=== PATIENT | male | born 1970 | race Caucasian/White ===

== ENCOUNTER 2018-01-10 15:35 | Emergency (ER) | payer OTHER ==
[2018-01-10] MEDS ORDERED: FAMOTIDINE 20 MG/2 ML VIAL IV ONE (17:03)
[2018-01-10] MEDS ORDERED: DIPHENHYDRAMINE 50 MG/ML VIAL ONE (17:03)
[2018-01-10] MEDS ORDERED: METHYLPREDNISOLONE 125 MG INJ ONE (17:03)
[2018-01-10 17:07] LABS: Absolute Lymphocytes (CBC) 1.9 K/uL (0.7-4.9); Absolute Monocytes 1.2 K/uL (0.1-1.3); Absolute Neutrophil 5.6 K/uL (1.8-8.0); Eosinophils % 3.9 % (0-4.4); Hematocrit 42.1 % (39.6-49.0); Lymphocytes % 20.8 % (15.3-44.8); MCH 32.4 pg (27.0-35.0); MCV 91.9 fL (80-100); MPV 12.2 fL (7.6-11.3); Monocytes % 13.4 % (3.3-12.3); RBC Red Blood Cell Count 4.58 M/uL (4.33-5.43)
--- NOTE | 2018-01-10 17:23 | RAD REPORT ---
EXAM DESCRIPTION: CT - Facial Bones W/ Mpr - 01/10/2018 5:14 pm CLINICAL HISTORY: Left-sided periorbital pain and swelling COMPARISON: None. TECHNIQUE: Axial 2 millimeter thick images of the facial bones were obtained with sagittal and coron al reconstruction imaging. All CT scans are performed using dose optimization technique as appropriate and may include automated exposure control or mA/KV adjustment according to patient size. FINDINGS: Intracranial portion the examination is grossly normal. Mastoid air cells are clear. Minim al mucosal thickening in the left maxillary sinus. No acute sinus finding. No globe abnormality. Optic nerve and extraocular muscles on the left have a normal appearance and ar e similar to the right. No postseptal abnormality seen. There is soft tissue swelling in the presepta l left periorbital soft tissues. No air or foreign body. No drainable fluid collection. No acute bone finding. No abnormal lymphadenopathy. IMPRESSION: Left periorbital soft tissue swelling and edema. No abscess or drainable fluid collectio n. Left globe and left orbital contents unremarkable. No postseptal abnormality.
[2018-01-10 17:54] LABS: Albumin 3.8 g/dL (3.4-5.0); Bilirubin Total 0.7 mg/dL (0.2-1.0); Protein, Total 7.5 g/dL (6.4-8.2)
[2018-01-10 17:55] LABS: Potassium 4.6 mmol/L (3.5-5.1)
--- NOTE | 2018-01-10 18:38 | ER ---
Nurse's Notes [facility] Name: Armando Grajeda Age: 47 yrs Sex: Male : 1970 Arrival Date: 01/10/2018 Time: 15:38 Bed 23 Private MD: Diagnosis: Urticaria;Allergy, unspecified;Periorbital swelling - allergic Presentation: 01/10 15:50 Presenting complaint: Patient states: Last Thursday he starting having allergy symptoms, aj1 and started taking allergy medications. Thursday morning he woke up and his eye was swollen, it was worse yesterday so he went to Urgent care and was diagnosed with cellulitis and given a Rx for clindamycin. He took it last night and this morning but the swelling in continuing to get worse. Transition of care: patient was not received from another setting of care. Onset of symptoms was January 03, 2018. Risk Assessment: Do you want to hurt yourself or someone else? Patient reports no desire to harm self or others. Initial Sepsis Screen: Does the patient meet any 2 criteria? No. Patient's initial sepsis screen is negative. Does the patient have a suspected source of infection? No. Patient's initial sepsis screen is negative. Care prior to arrival: None. 15:50 Method Of Arrival: Ambulatory aj1 15:50 Acuity: FEDER[place] 3 aj1 Triage Assessment: 15:55 General: Appears in no apparent distress. uncomfortable, Behavior is calm, cooperative, aj1 appropriate for age. Pain: Denies pain. EENT: Eyes Lid(s) redness and swelling noted to left eye. Neuro: Level of Consciousness is awake, alert, obeys commands. Cardiovascular: Patient's skin is warm and dry. Respiratory: Airway is patent Respiratory effort is even, unlabored, Respiratory pattern is regular, symmetrical. Historical: - Allergies: 15:55 No Known Allergies; aj1 - Home Meds: 15:55 clindamycin HCl 300 mg Oral cap 1 cap three times daily [Active]; Hydrochlorothiazide aj1 Oral [Active]; - PMHx: 15:55 Hypertension; aj1 - Immunization history:: Flu vaccine status is unknown. - Social history:: Smoking status: Patient/guardian denies using tobacco. - Ebola Screening: : No symptoms or risks identified at this time. Screenin:00 Abuse screen: Denies threats or abuse. Denies injuries from another. Nutritional kr2 screening: No deficits noted. Tuberculosis screening: No symptoms or risk factors identified. Fall Risk None identified. Assessment: 16:00 General: Appears in no apparent distress. comfortable, well groomed, well developed, kr2 well nourished, Behavior is calm, cooperative, appropriate for age. Pain: Denies pain. Neuro: Level of Consciousness is awake, alert, obeys commands, Oriented to person, place, time, situation, Appropriate for age. Cardiovascular: Capillary refill < 3 seconds in bilateral fingers Patient's skin is warm and dry. Respiratory: Airway is patent Respiratory effort is even, unlabored, Respiratory pattern is regular, symmetrical. GI: Abdomen is flat, non-distended. EENT: Lid(s) swelling. Nares are clear bilaterally Oral mucosa is moist. Derm: Skin is intact, is healthy with good turgor, Skin is pink, warm \T\ dry. Rash noted that is red, on wrists. Musculoskeletal: Swelling present in right eye and left eye. 17:00 Reassessment: Patient appears in no apparent distress at this time. Patient and/or kr2 family updated on plan of care and expected duration. Pain level reassessed. Patient is alert, oriented x 3, equal unlabored respirations, skin warm/dry/pink. Patient denies pain at this time. Patient states feeling better. 18:00 Reassessment: Patient appears in no apparent distress at this time. Patient and/or kr2 family updated on plan of care and expected duration. Pain level reassessed. Patient is alert, oriented x 3, equal unlabored respirations, skin warm/dry/pink. Patient states feeling better. Patient states symptoms have improved. 18:50 Reassessment: Patient appears in no apparent distress at this time. Patient and/or kr2 family updated on plan of care and expected duration. Pain level reassessed. Patient is alert, oriented x 3, equal unlabored respirations, skin warm/dry/pink. Patient denies pain at this time. Patient states feeling better. Patient states symptoms have improved. Vital Signs: 15:55 BP 129 / 83; Pulse 74; Resp 18; Temp 98.7(TE); Pulse Ox 96% on R/A; Weight 97.52 kg aj1 (R); Height 5 ft. 9 in. (175.26 cm) (R); Pain 0/10; 18:25 BP 129 / 83; Pulse 68; Resp 17; Pulse Ox 97% on R/A; kr2 15:55 Body Mass Index 31.75 (97.52 kg, 175.26 cm) aj1 ED Course: 15:38 Patient arrived in ED. as 15:54 Triage completed. aj1 15:55 Arm band placed on Patient placed in an exam room. aj1 16:00 Patient has correct armband on for positive identification. Bed in low position. Call kr2 light in reach. Side rails up X 1. Pulse ox on. NIBP on. Door closed. Warm blanket given. 16:01 Adan Hdz, LAURYN is PHCP. pm1 16:01 Adam Mckinnon MD is Attending Physician. pm1 16:40 Missed attempt(s): 20 gauge in left antecubital area. Bleeding controlled, band aid kr2 applied, catheter tip intact. 16:45 Inserted saline lock: 20 gauge in right antecubital area, using aseptic technique. kr2 ,using aseptic technique. by GELA Anderson Blood collected. 16:57 Felicia Weinstein, GELA is Primary Nurse. kr2 17:13 CT completed. Patient tolerated procedure well. Patient moved back from CT. kw1 17:14 CT Facial Bones W/O Con In Process Unspecified. EDMS 18:50 No provider procedures requiring assistance completed. IV discontinued, intact, kr2 bleeding controlled, No redness/swelling at site. Pressure dressing applied. Administered Medications: 17:04 Drug: Benadryl 25 mg Route: IVP; Site: right antecubital; kr2 18:26 Follow up: Response: No adverse reaction; Marked relief of symptoms kr2 17:04 Drug: Pepcid 20 mg Route: IVP; Site: right antecubital; kr2 18:26 Follow up: Response: No adverse reaction; Marked relief of symptoms kr2 17:04 Drug: SOLU-Medrol 125 mg Route: IVP; Site: right antecubital; kr2 18:26 Follow up: Response: No adverse reaction; Marked relief of symptoms kr2 Outcome: 18:38 Discharge ordered by . pm1 18:50 Discharged to home ambulatory, with family. kr2 18:50 Condition: improved 18:50 Discharge instructions given to patient, family, Instructed on discharge instructions, follow up and referral plans. medication usage, Demonstrated understanding of instructions, follow-up care, medications, Prescriptions given X 3. 18:51 Patient left the ED. kr2 Signatures: Dispatcher [employer] EDMS Cathy Reyes, RN RN lily1 Brigitte Esparza Patrick, LAURYN SENIOR JAVA J2EE DEVELOPER pm1 Felicia Weinstein RN RN kr2 Noreen Gutierrez kw1
--- NOTE | 2018-01-10 18:38 | EDPHYS ---
Physician Documentation [facility] Name: Armando Grajeda Age: 47 yrs Sex: Male : 1970 Arrival Date: 01/10/2018 Time: 15:38 Bed 23 Private MD: ED Physician Adam Mckinnon HPI: 01/10 17:00 This 47 yrs old Male presents to ER via Ambulatory with complaints of Eye pm1 Swelling, Skin Problem - Neck/Forehead. 17:00 The patient is experiencing swelling, to the left eye, caused by an unknown mechanism. pm1 Onset: The symptoms/episode began/occurred 1 week(s) ago. Duration: the symptoms are continuous. Aggravated by nothing. Alleviated by nothing. Associated signs and symptoms: Pertinent negatives: ear ache, fever. Patient does not utilize any form of vision correction. Severity of symptoms: Pain is currently a 0 / 10. The patient has not experienced similar symptoms in the past. The patient has been recently seen at an urgent care, yesterday, for similar complaints, was given a prescription for antibiotics, clindamycin. Patient with allergy symptoms and swelling to left eye that started about 1 week ago. Patient went to urgent care yesterday because the swelling got worse and was prescribed clindamycin for an impression of periorbital cellulitis. Patient reports no improvement in symptoms with the antibiotics. Patient without pain to left eye. Eye movement does not cause any pain. Patient has noticed some urticarial rash to right cheek, forehead, and neck. Historical: - Allergies: 15:55 No Known Allergies; aj1 - Home Meds: 15:55 clindamycin HCl 300 mg Oral cap 1 cap three times daily [Active]; Hydrochlorothiazide aj1 Oral [Active]; - PMHx: 15:55 Hypertension; aj1 - Immunization history:: Flu vaccine status is unknown. - Social history:: Smoking status: Patient/guardian denies using tobacco. - Ebola Screening: : No symptoms or risks identified at this time. ROS: 17:00 Constitutional: Negative for fever, chills, and weight loss, ENT: Negative for injury, pm1 pain, and discharge, Neck: Negative for injury, pain, and swelling. 17:00 Cardiovascular: Negative for chest pain, palpitations, and edema, Respiratory: Negative for shortness of breath, cough, wheezing, and pleuritic chest pain, Abdomen/GI: Negative for abdominal pain, nausea, vomiting, diarrhea, and constipation, Back: Negative for injury and pain, : Negative for injury, bleeding, discharge, and swelling, MS/Extremity: Negative for injury and deformity. 17:00 Neuro: Negative for headache, weakness, numbness, tingling, and seizure. 17:00 Eyes: Positive for swelling, of the left upper eyelid and left lower eyelid, Negative for blurry vision, foreign body sensation, pain, photophobia, vision loss, visual disturbance. 17:00 Skin: Positive for rash, of the forehead and right cheek. Exam: 17:00 Constitutional: This is a well developed, well nourished patient who is awake, alert, pm1 and in no acute distress. Head/Face: Normocephalic, atraumatic. ENT: Nares patent. No nasal discharge, no septal abnormalities noted. Tympanic membranes are normal and external auditory canals are clear. Oropharynx with no redness, swelling, or masses, exudates, or evidence of obstruction, uvula midline. Mucous membranes moist. 17:00 Neck: Trachea midline, no thyromegaly or masses palpated, and no cervical lymphadenopathy. Supple, full range of motion without nuchal rigidity, or vertebral point tenderness. No Meningismus. Chest/axilla: Normal chest wall appearance and motion. Nontender with no deformity. No lesions are appreciated. Cardiovascular: Regular rate and rhythm with a normal S1 and S2. No gallops, murmurs, or rubs. Normal PMI, no JVD. No pulse deficits. Respiratory: Lungs have equal breath sounds bilaterally, clear to auscultation and percussion. No rales, rhonchi or wheezes noted. No increased work of breathing, no retractions or nasal flaring. Abdomen/GI: Soft, non-tender, with normal bowel sounds. No distension or tympany. No guarding or rebound. No evidence of tenderness throughout. Back: No spinal tenderness. No costovertebral tenderness. Full range of motion. MS/ Extremity: Pulses equal, no cyanosis. Neurovascular intact. Full, normal range of motion. Neuro: Awake and alert, GCS 15, oriented to person, place, time, and situation. Cranial nerves II-XII grossly intact. Motor strength 5/5 in all extremities. Sensory grossly intact. Cerebellar exam normal. Normal gait. 17:00 Eyes: Periorbital structures: swelling, that is mild, on the left supraorbital ridge, left upper eyelid and left lower eyelid, Pupils: no acute changes, equal, round, and reactive to light and accomodation, Extraocular movements: Not painful with both eyes, Conjunctiva: normal, no chemosis, no exudate, no injection, no subconjunctival hemorrhage no abnormal tearing. 17:00 Skin: Appearance: normal except for affected area, consistent with urticaria, on the right cheek and forehead. 17:00 Neuro: Orientation: is normal, Motor: moves all fours. Vital Signs: 15:55 BP 129 / 83; Pulse 74; Resp 18; Temp 98.7(TE); Pulse Ox 96% on R/A; Weight 97.52 kg aj1 (R); Height 5 ft. 9 in. (175.26 cm) (R); Pain 0/10; 18:25 BP 129 / 83; Pulse 68; Resp 17; Pulse Ox 97% on R/A; kr2 15:55 Body Mass Index 31.75 (97.52 kg, 175.26 cm) aj1 MDM: 16:03 Patient medically screened. pm1 18:32 Data reviewed: vital signs. Data interpreted: Pulse oximetry: on room air is 97 %. pm1 Interpretation: normal. Counseling: I had a detailed discussion with the patient and/or guardian regarding: the historical points, exam findings, and any diagnostic results supporting the discharge/admit diagnosis, lab results, radiology results, the need for outpatient follow up, to return to the emergency department if symptoms worsen or persist or if there are any questions or concerns that arise at home. 18:32 Medication response: Solu-Medrol, pepcid, Benadryl. Patient with marked improvement pm1 with medications given. 18:32 ED course: Patient with good response to medications for treating allergic reaction. pm1 Impression is that the patient's symptoms are allergic versus infective. 01/10 16:17 Order name: CBC with Diff; Complete Time: 17:26 pm1 01/10 16:17 Order name: CMP; Complete Time: 17:58 pm1 01/10 16:17 Order name: CT Facial Bones W/O Con; Complete Time: 17:26 pm1 01/10 16:17 Order name: IV Saline Lock; Complete Time: 17:04 pm1 01/10 17:13 Order name: Labs - recollect needed; Complete Time: 17:42 eb Administered Medications: 17:04 Drug: Benadryl 25 mg Route: IVP; Site: right antecubital; kr2 18:26 Follow up: Response: No adverse reaction; Marked relief of symptoms kr2 17:04 Drug: Pepcid 20 mg Route: IVP; Site: right antecubital; kr2 18:26 Follow up: Response: No adverse reaction; Marked relief of symptoms kr2 17:04 Drug: SOLU-Medrol 125 mg Route: IVP; Site: right antecubital; kr2 18:26 Follow up: Response: No adverse reaction; Marked relief of symptoms kr2 Disposition: 01/10/18 18:38 Discharged to Home. Impression: Periorbital swelling - allergic, Urticaria, Allergy, unspecified. - Condition is Stable. - Discharge Instructions: Hives. - Prescriptions for Benadryl 25 mg Oral Capsule - take 1 capsule by ORAL route every 6 hours As needed; 30 tablet. Pepcid 20 mg Oral Tablet - take 1 tablet by ORAL route every 12 hours for 5 days; 10 tablet. Prednisone 20 mg Oral Tablet - take 3 tablet by ORAL route once daily for 5 days; 15 tablet. - Medication Reconciliation Form, Thank You Letter, Antibiotic Education, Prescription Opioid Use form. - Follow up: Emergency Department; When: As needed; Reason: Worsening of condition. Follow up: Private Physician; When: 2 - 3 days; Reason: Recheck today's complaints, Continuance of care, Re-evaluation by your physician. - Problem is new. - Symptoms have improved. Addendum: 01/19/2018 08:25 Co-signature as Attending Physician, Adam Mckinnon MD. r n Signatures: Dispatcher [employer] EDMS Cathy Reyes RN RN aj1 Adam Mckinnon MD MD rn Marinas, Patrick, LAURYN INSULATION BOARD BACK TENDER pm1 Felicia Weinstein RN RN kr2 Maren Pedraza Corrections: (The following items were deleted from the chart) 01/10 18:51 18:38 01/10/2018 18:38 Discharged to Home. Impression: Periorbital swelling - kr2 allergicUrticaria; Allergy, unspecified. Condition is Stable. Forms are Medication Reconciliation Form, Thank You Letter, Antibiotic Education, Prescription Opioid Use. Follow up: Emergency Department; When: As needed; Reason: Worsening of condition. Follow up: Private Physician; When: 2 - 3 days; Reason: Recheck today's complaints, Continuance of care, Re-evaluation by your physician. Problem is new. Symptoms have improved. pm1
[2018-01-10 19:02] VITALS: BP 129/83; TEMP 98.7
[2018-01-10 19:03] VITALS: O2SAT 97
== END 2018-01-10 18:51 | disposition home or self-care (01) ==
LOC: ER 15:35
DX: L50.9 Urticaria, unspecified (principal); I10 Essential (primary) hypertension; Z91.09 Other allergy status, other than to drugs and biological substances
CPT/HCPCS: 36415; 70486; 76377; 80053; 85025; 96374; 96375; 99284; J2930; Q9967

== ENCOUNTER 2018-10-06 14:41 | Emergency (ER) | payer OTHER ==
[2018-10-06] MEDS ORDERED: DIPHENHYDRAMINE 25 MG TAB/CAP ONE (16:10)
[2018-10-06] MEDS ORDERED: METHYLPREDNISOLONE 125 MG INJ ONE (16:10)
[2018-10-06] MEDS ORDERED: FAMOTIDINE 20 MG TAB ONE (16:10)
--- NOTE | 2018-10-06 16:29 | EDPHYS ---
Physician Documentation [facility] Name: Armando Grajeda Age: 48 yrs Sex: Male : 1970 Arrival Date: 10/06/2018 Time: 14:44 Bed 11 Private MD: Edmond Duggan ED Physician Scottie Santana HPI: 10/06 16:08 This 48 yrs old Male presents to ER via Ambulatory with complaints of Eye kb Swelling, Allergy Symptoms. 16:08 The patient is experiencing matting or discharge, redness, The patient sustained None. kb to the left eye, caused by allergies. Onset: The symptoms/episode began/occurred yesterday. Duration: the symptoms are continuous. Aggravated by nothing. Alleviated by nothing. Associated signs and symptoms: Pertinent positives: None. Patient does not utilize any form of vision correction. Severity of symptoms: At their worst the symptoms were moderate in the emergency department the symptoms are unchanged. The patient has experienced similar episodes in the past. The patient has not recently seen a physician. Pt reports he has bad allergies and they affect his eye every once in a while. c/o redness, swelling to eyelids and drainage to left eye. States he has had these exact symptoms in the past several times, was seen here the last time he had symptoms and the treatment they gave took care of it. States he has tried multiple things at home without relief. . Historical: - Allergies: 15:40 No Known Allergies; ph - PMHx: 15:40 Hypertension; ph - PSHx: 15:40 Gastric Bypass; leg sx; Appendectomy; ph - Immunization history:: Adult Immunizations unknown. - Social history:: Smoking status: Patient/guardian denies using tobacco. - Ebola Screening: : No symptoms or risks identified at this time. ROS: 16:07 Constitutional: Negative for fever, chills, and weight loss, Neck: Negative for injury, kb pain, and swelling, Cardiovascular: Negative for chest pain, palpitations, and edema, Respiratory: Negative for shortness of breath, cough, wheezing, and pleuritic chest pain, Abdomen/GI: Negative for abdominal pain, nausea, vomiting, diarrhea, and constipation, MS/Extremity: Negative for injury and deformity, Skin: Negative for injury, rash, and discoloration, Neuro: Negative for headache, weakness, numbness, tingling, and seizure. 16:07 Eyes: Positive for discharge, redness, swelling. Exam: 16:05 Constitutional: This is a well developed, well nourished patient who is awake, alert, kb and in no acute distress. Head/Face: Normocephalic, atraumatic. ENT: Nares patent. No nasal discharge, no septal abnormalities noted. Tympanic membranes are normal and external auditory canals are clear. Oropharynx with no redness, swelling, or masses, exudates, or evidence of obstruction, uvula midline. Mucous membranes moist. Chest/axilla: Normal chest wall appearance and motion. Nontender with no deformity. No lesions are appreciated. Cardiovascular: Regular rate and rhythm with a normal S1 and S2. No gallops, murmurs, or rubs. Normal PMI, no JVD. No pulse deficits. Respiratory: Lungs have equal breath sounds bilaterally, clear to auscultation and percussion. No rales, rhonchi or wheezes noted. No increased work of breathing, no retractions or nasal flaring. Abdomen/GI: Soft, non-tender, with normal bowel sounds. No distension or tympany. No guarding or rebound. No evidence of tenderness throughout. Skin: Warm, dry with normal turgor. Normal color with no rashes, no lesions, and no evidence of cellulitis. MS/ Extremity: Pulses equal, no cyanosis. Neurovascular intact. Full, normal range of motion. Neuro: Awake and alert, GCS 15, oriented to person, place, time, and situation. Cranial nerves II-XII grossly intact. Motor strength 5/5 in all extremities. Sensory grossly intact. Cerebellar exam normal. Normal gait. 16:05 Eyes: Periorbital structures: swelling, that is moderate, on the left upper eyelid and left lower eyelid, Pupils: equal, round, and reactive to light and accomodation, Extraocular movements: intact throughout, Conjunctiva: injected, in the left eye. 16:28 Visual Acuity: I have reviewed the nursing documentation. Vital Signs: 15:40 BP 131 / 89; Pulse 97; Resp 18; Temp 98.0; Pulse Ox 97% on R/A; Weight 96.62 kg; Height ph 5 ft. 9 in. (175.26 cm); 15:40 Body Mass Index 31.45 (96.62 kg, 175.26 cm) ph Visual Acuity: 16:28 Left Eye Visual acuity 20/25, Normal, Reactive To Accomodation; Right Eye Visual acuity ss 20/50, Normal, Reactive To Accomodation; Both Eyes Visual acuity 20/20; Without Lenses; MDM: 15:47 Patient medically screened. kb 16:05 Data reviewed: vital signs, nurses notes. Data interpreted: Pulse oximetry: on room air kb is 97 %. Interpretation: normal. Counseling: I had a detailed discussion with the patient and/or guardian regarding: the historical points, exam findings, and any diagnostic results supporting the discharge/admit diagnosis, the need for outpatient follow up, a family practitioner, to return to the emergency department if symptoms worsen or persist or if there are any questions or concerns that arise at home. 10/06 16:06 Order name: Visual Acuity; Complete Time: 16:28 kb Administered Medications: 16:01 Drug: Pepcid 20 mg Route: PO; ss 16:29 Follow up: Response: No adverse reaction ss 16:01 Drug: Benadryl 25 mg Route: PO; ss 16:29 Follow up: Response: No adverse reaction ss 16:01 Drug: SOLU-Medrol 125 mg Route: IM; Site: right gluteus; ss 16:28 Follow up: Response: No adverse reaction ss Disposition: 10/07 06:51 Co-signature as Attending Physician, Scottie Santana MD I agree with the assessment and kdr plan of care. Disposition: 10/06/18 16:28 Discharged to Home. Impression: Conjunctivitis - allergic. - Condition is Stable. - Discharge Instructions: Allergic Conjunctivitis, [id number]. - Prescriptions for Pepcid 20 mg Oral Tablet - take 1 tablet by ORAL route every 12 hours for 5 days; 10 tablet. Prednisone 20 mg Oral Tablet - take 1 tablet by ORAL route once daily for 5 days; 5 tablet. - Medication Reconciliation Form, Thank You Letter, Antibiotic Education, Prescription Opioid Use form. - Follow up: Private Physician; When: 2 - 3 days; Reason: Recheck today's complaints, Continuance of care, Re-evaluation by your physician. Follow up: Emergency Department; When: As needed; Reason: Worsening of condition. Signatures: Angeles Omalley, APPLIANCE COUNSELOR-C TIM-Scottie Michele MD MD kdr Jeniffer Mcginnis RN RN ss Rea Dupree RN RN ph Corrections: (The following items were deleted from the chart) 10/06 16:34 16:28 10/06/2018 16:28 Discharged to Home. Impression: Conjunctivitis - allergic. ss Condition is Stable. Discharge Instructions: Allergic Conjunctivitis, [id number]. Prescriptions for Pepcid 20 mg Oral Tablet - take 1 tablet by ORAL route every 12 hours for 5 days; 10 tablet, Prednisone 20 mg Oral Tablet - take 1 tablet by ORAL route once daily for 5 days; 5 tablet. and Forms are Medication Reconciliation Form, Thank You Letter, Antibiotic Education, Prescription Opioid Use. Follow up: Private Physician; When: 2 - 3 days; Reason: Recheck today's complaints, Continuance of care, Re-evaluation by your physician. Follow up: Emergency Department; When: As needed; Reason: Worsening of condition. kb
--- NOTE | 2018-10-06 16:29 | ER ---
Nurse's Notes [facility] Name: Armando Grajeda Age: 48 yrs Sex: Male : 1970 Arrival Date: 10/06/2018 Time: 14:44 Bed 11 Private MD: Edmond Duggan Diagnosis: Conjunctivitis-allergic Presentation: 10/06 15:37 Presenting complaint: Patient states: L eye redness and swelling since yesterday, ph states, " I have bad seasonal allergies and this happens sometimes." Redness noted to L sclera, swelling to lid, drainage also noted to inner canthus. Transition of care: patient was not received from another setting of care. Onset: The symptoms/episode began/occurred yesterday. Anaphylaxis evaluation, no signs or symptoms of anaphylaxis were noted. Onset of symptoms was October 06, 2018. Risk Assessment: Do you want to hurt yourself or someone else? Patient reports no desire to harm self or others. Initial Sepsis Screen: Does the patient meet any 2 criteria? No. Patient's initial sepsis screen is negative. Does the patient have a suspected source of infection? No. Patient's initial sepsis screen is negative. Care prior to arrival: None. 15:37 Method Of Arrival: Ambulatory ph 15:37 Acuity: FEDERICO 4 ph Historical: - Allergies: 15:40 No Known Allergies; ph - PMHx: 15:40 Hypertension; ph - PSHx: 15:40 Gastric Bypass; leg sx; Appendectomy; ph - Immunization history:: Adult Immunizations unknown. - Social history:: Smoking status: Patient/guardian denies using tobacco. - Ebola Screening: : No symptoms or risks identified at this time. Screenin:48 Abuse screen: Denies threats or abuse. Denies injuries from another. Nutritional ss screening: No deficits noted. Tuberculosis screening: Never had TB. Fall Risk None identified. Assessment: 15:43 General: Appears in no apparent distress. comfortable, well groomed, Behavior is calm, ph cooperative, appropriate for age, Denies fever, feeling ill. Pain: Complains of pain in left eye. Neuro: Level of Consciousness is awake, alert, obeys commands, Oriented to person, place, time, situation. Cardiovascular: Capillary refill < 3 seconds in bilateral fingers Patient's skin is warm and dry. Respiratory: Airway is patent Respiratory effort is even, unlabored, Respiratory pattern is regular, symmetrical, Breath sounds are clear bilaterally. Denies cough, shortness of breath. EENT: Sclera/Cornea are reddened in left eye. Derm: Skin is intact, is healthy with good turgor, Skin is pink, warm \\T\\ dry. 16:03 Reassessment: Patient appears in no apparent distress at this time. Patient and/or ss family updated on plan of care and expected duration. Pain level reassessed. lights dimmed for comfort, patient is thankful for care received thus far. 16:29 Reassessment: Patient appears in no apparent distress at this time. Patient and/or ss family updated on plan of care and expected duration. Pain level reassessed. Patient is alert, oriented x 3, equal unlabored respirations, skin warm/dry/pink. Vital Signs: 15:40 BP 131 / 89; Pulse 97; Resp 18; Temp 98.0; Pulse Ox 97% on R/A; Weight 96.62 kg; Height ph 5 ft. 9 in. (175.26 cm); 15:40 Body Mass Index 31.45 (96.62 kg, 175.26 cm) ph Visual Acuity: 16:28 Left Eye Visual acuity 20/25, Normal, Reactive To Accomodation; Right Eye Visual acuity ss 20/50, Normal, Reactive To Accomodation; Both Eyes Visual acuity 20/20; Without Lenses; ED Course: 14:44 Patient arrived in ED. as 14:44 Edmond Duggan MD is Private Physician. as 15:39 Triage completed. ph 15:40 Arm band placed on. ph 15:43 Rea Dupree RN is Primary Nurse. ph 15:46 Angeles Omalley F[facility]-C [facility]. kb 15:46 Scottie Santana MD is Attending Physician. kb 15:48 Patient has correct armband on for positive identification. Bed in low position. Call ss light in reach. 15:48 Patient maintains SpO2 saturation greater than 95% on room air. ss 16:29 No provider procedures requiring assistance completed. Patient did not have IV access ss during this emergency room visit. Administered Medications: 16:01 Drug: Pepcid 20 mg Route: PO; ss 16:29 Follow up: Response: No adverse reaction ss 16:01 Drug: Benadryl 25 mg Route: PO; ss 16:29 Follow up: Response: No adverse reaction ss 16:01 Drug: SOLU-Medrol 125 mg Route: IM; Site: right gluteus; ss 16:28 Follow up: Response: No adverse reaction ss Outcome: 16:28 Discharge ordered by . kb 16:29 Discharged to home ambulatory. ss 16:29 Condition: good 16:29 Discharge instructions given to patient, Instructed on discharge instructions, follow up and referral plans. medication usage, Demonstrated understanding of instructions, follow-up care, medications, Prescriptions given X 2. 16:34 Patient left the ED. ss Signatures: Angeles Omalley, WIRE STRANDER-C WIRE STRANDER-Brigitte Garza Shelby, GELA RN Rea Dupree RN RN ph
[2018-10-06 17:19] VITALS: BP 131/89; TEMP 98; O2SAT 97
== END 2018-10-06 16:34 | disposition home or self-care (01) ==
LOC: ER 14:41
DX: H10.12 Acute atopic conjunctivitis, left eye (principal); I10 Essential (primary) hypertension
CPT/HCPCS: 96372; 99284; J2930

== ENCOUNTER 2024-06-27 14:16 | Inpatient (IN) | payer OTHER ==
[2024-06-27] MEDS ORDERED: LEVALBUTEROL 1.25 MG/3 ML NEB ONE (15:00)
[2024-06-27] MEDS ORDERED: IPRATROPIUM BROM 0.5MG/2.5ML ONE ×2 (15:00→20:24)
[2024-06-27] MEDS ORDERED: METHYLPREDNISOLONE 125 MG INJ ONE (15:00)
[2024-06-27] MEDS ORDERED: NA CHLORIDE 0.9% 500 ML ONE (15:01)
[2024-06-27] MEDS ORDERED: levoFLOXacin 750 MG TAB ONE (15:01)
--- NOTE | 2024-06-27 15:14 | RAD REPORT ---
EXAM: Chest Single View HISTORY: Cough;Dyspnea COMPARISON: 07/03/2017 FINDINGS: LUNGS/PLEURA: Increased prominence of the pulmonary interstitium. Question consolidation at the left lung base. At least small left pleural effusion. MEDIASTINUM: The mediastinal silhouette is within normal limits. CARDIAC: Cardiomegaly. UPPER ABDOMEN: No significant abnormality. BONES: No acute abnormality. LINES/TUBES/OTHER: N/A IMPRESSION: Increased prominence of the pulmonary interstitium with likely new small left pleural effusion concer marty for pulmonary edema. More focal opacities present the left lung base could represent a superimposed pneumonia in the appropriate clinical setting.
[2024-06-27 15:16] LABS: Absolute Lymphocytes (CBC) 0.9 K/uL (0.7-4.9); Absolute Monocytes 2.2 K/uL (0.1-1.3); Basophils % 0.2 % (0-1.3); Hematocrit 37.9 % (39.6-49.0); Hemoglobin 13.4 g/dL (13.6-17.9); Lymphocytes % 8.2 % (15.3-44.8); MCH 31.6 pg (27.0-35.0); MCHC 35.3 g/dL (32.0-36.0); MCV 89.6 fL (80-100); MPV 9.8 fL (7.6-11.3); Monocytes % 19.7 % (3.3-12.3); Neutrophils % 71.9 % (41.7-73.7); Platelets 310 thou/uL (152-406); RBC Red Blood Cell Count 4.23 M/uL (4.33-5.43); Red Cell Distribution Width 15.8 % (12.1-15.2)
[2024-06-27 15:19] LABS: Protime INR 1.34
[2024-06-27] MEDS ORDERED: FUROSEMIDE 20 MG/ 2ML VIAL ONE (15:21)
[2024-06-27] MEDS ORDERED: ASPIRIN 81 MG CHEWABLE TABLET ONE (15:21)
[2024-06-27] MEDS ORDERED: FAMOTIDINE 20 MG/2 ML VIAL IV ONE (15:22)
--- NOTE | 2024-06-27 15:36 | ER ---
Nurse's Notes [facility] Name: Armando Grajeda Age: 53 yrs Sex: Male : 1970 Arrival Date: 06/27/2024 Time: 14:16 Bed 17 Private MD: Diagnosis: Hypoxemia;Pneumonia due to other specified bacteria;Pleural effusion in other conditions classified elsewhere;Tobacco abuse counseling;Tobacco use;Chronic combined systolic (congestive) and diastolic (congestive) heart failure;COPD/ Chronic obstructive pulmonary disease with (acute) exacerbation;Hypo-osmolality and hyponatremia;Non ST elevation [place];Alcohol use, unspecified Presentation: 06/27 14:31 Chief complaint: Patient states: Assisted pt out of POV. Pt reporting SOB, wheezing, jl7 intermittent fever x2 weeks. Coronavirus screen: Vaccine status: Patient reports being unvaccinated. Client denies travel out of the [place] in the last 14 days. Ebola Screen: Patient negative for fever greater than or equal to 101.5 degrees Fahrenheit, and additional compatible Ebola Virus Disease symptoms Patient denies exposure to infectious person. Patient denies travel to an Ebola-affected area in the 21 days before illness onset. Initial Sepsis Screen: Does the patient meet any 2 criteria? RR > 20 per min. HR > 90 bpm. Does the patient have a suspected source of infection? No. Patient's initial sepsis screen is negative. Risk Assessment: Do you want to hurt yourself or someone else? Patient reports no desire to harm self or others. Onset of symptoms is unknown. 14:31 Method Of Arrival: Wheelchair [facility] 14:31 Acuity: FEDERICO 2 jl7 Triage Assessment: 14:38 General: Appears in no apparent distress. uncomfortable, obese, Behavior is calm, kb3 cooperative. Pain: Denies pain. Respiratory: Reports shortness of breath cough that is labored breathing Airway is patent Trachea midline Respiratory effort is labored, Respiratory pattern is tachypnea Breath sounds with wheezes bilaterally. Onset: The symptoms/episode began/occurred increasing over thee last 2 weeks, the patient has moderate shortness of breath. Historical: - Allergies: 14:36 No Known Allergies; kb3 - Home Meds: 14:42 2 unknown BP meds [Active]; jl7 - PMHx: 14:36 Hypertension; kb3 - Immunization history:: Adult Immunizations up to date, Client reports having NOT received the Covid vaccine. - Infectious Disease History:: Denies. - Social history:: Smoking status: Patient reports the use of cigarette tobacco products, smokes one pack cigarettes per day. Patient uses alcohol, on a daily basis. claims drinking about a 6 pack/day. Screenin:45 [facility] ED Fall Risk Assessment (Adult) History of falling in the last 3 months, kj2 including since admission No falls in past 3 months (0 pts) Confusion or Disorientation No (0 pts) Intoxicated or Sedated No (0 pts) Impaired Gait No (0 pts) Mobility Assist Device Used No (0 pt) Altered Elimination No (0 pt) Score/Fall Risk Level 0 - 2 = Low Risk Maintained a safe environment, Hourly rounding (assess needs \T\ fall precautionary measures) done. Abuse screen: Denies threats or abuse. Denies injuries from another. Nutritional screening: No deficits noted. Tuberculosis screening: No symptoms or risk factors identified. Assessment: 17:45 General: Appears in no apparent distress. Behavior is calm, cooperative. Pain: Denies kj2 pain. Neuro: Level of Consciousness is awake, alert, obeys commands, Oriented to person, place, time, situation. Cardiovascular: Patient's skin is warm and dry. Respiratory: Airway is patent Respiratory effort is unlabored, Patient placed on BiPAP:. GI: No signs and/or symptoms were reported involving the gastrointestinal system. : pure wicc. 06/28 16:41 Reassessment: nurse to nurse report given to GELA Guerra. ha1 Vital Signs: 06/27 14:31 BP 163 / 98; Pulse 103; Resp 32; Temp 98.2; Pulse Ox 86% on R/A; Weight 108.86 kg; jl7 Height 5 ft. 8 in. ; Pain 0/10; 16:45 Pulse 89; Resp 23; Pulse Ox 100% on BiPAP; jl7 17:07 BP 156 / 99; cc6 14:31 Body Mass Index 36.49 (108.86 kg, 172.72 cm) jl7 14:31 Pain Scale: Adult jl7 ED Course: 14:18 Patient arrived in ED. ra3 14:22 Sp León MD is Attending Physician. [facility] 14:33 Triage completed. jl7 14:37 Val Valdez RN is Primary Nurse. jl7 14:38 Arm band placed on left wrist. Patient placed in an exam room, on a stretcher, on kb3 oxygen, on ekg monitor tech, on pulse oximetry. EKG completed in triage. Results shown to . 15:07 XRAY Chest (1 view) In Process Unspecified. EDMS 15:31 Emmanuel Johansen is Hospitalizing Provider. [facility] 15:57 Initial lab(s) drawn, by me, sent to lab. Inserted saline lock: 20 gauge in left cc6 antecubital area, using aseptic technique. Blood collected. Flushed with 10 mL NS. 15:57 Missed attempt(s): 20 gauge in left antecubital area. Bleeding controlled, band aid cc6 applied, catheter tip intact. 16:09 US Extremity Venous W Compression Jas In Process Unspecified. EDMS 17:45 Patient has correct armband on for positive identification. Bed in low position. Call kj2 light in reach. Side rails up X 1. Adult w/ patient. Provided Education on: call light. 17:45 Report received from GELA Neal. kj2 19:09 No provider procedures requiring assistance completed. Patient admitted, IV remains in jl7 place. intact, No redness/swelling at site. Administered Medications: 15:06 Not Given (Duplicate Order): ns 0.9% 500 ml 500 ml IV at 125 ml/hr once [facility] 15:18 Drug: MethylPrednisoLONE IVP 125 mg IVP once Route: IVP; Site: left antecubital; jl7 17:29 Follow up: Response: No adverse reaction jl7 15:18 Drug: Levalbuterol Inhalation 3.75 mg Inhalation once Route: Inhalation; jl7 17:29 Follow up: Response: No adverse reaction jl7 15:18 Drug: Ipratropium Inhalation Aerosol 0.5 mg Inhalation once Route: Inhalation; jl7 17:30 Follow up: Response: No adverse reaction jl7 15:18 Drug: LevOfloxacin PO 750 mg PO once Route: PO; jl7 17:30 Follow up: Response: No adverse reaction jl7 15:54 Drug: Famotidine IVP 20 mg IVP once; dilute with 10 mL 0.9% NaCl; give over 2 minutes jl7 Route: IVP; Site: right antecubital; 17:29 Follow up: Response: No adverse reaction jl7 15:55 Drug: Furosemide IVP 40 mg IVP once; give over 2 minutes Route: IVP; Site: right jl7 antecubital; 17:30 Follow up: Response: No adverse reaction jl7 15:55 Drug: Aspirin PO Chewable Tablet 81 mg PO once Route: PO; jl7 17:30 Follow up: Response: No adverse reaction jl7 17:29 Drug: Enoxaparin Sub-Q 100 mg Sub-Q once Route: Sub-Q; Site: abdomen; jl7 18:39 Follow up: Response: No adverse reaction kj2 18:25 Drug: Magnesium Sulfate IVPB 2 grams IVPB once over 2 hrs Route: IVPB; Infused Over: 2 kj2 hrs; Site: left antecubital; 18:39 Drug: Potassium PO Effervescent Tablet 50 mEq PO once; dissolve in 4 ounces of water or kj2 juice Route: PO; 21:15 Drug: Thiamine IV 100 mg IV at bolus once Route: IV; Rate: bolus; Site: left ay antecubital; 06/28 07:00 Follow up: Response: No adverse reaction; IV Status: Completed infusion 1 06/27 21:15 Drug: Banana Bag - (Multivitamin IV 1 amp, NS 0.9% IV 1000 ml, Thiamine IV 100 mg, ay foLIC Acid IVPB 1 mg) IV at 100 ml/hr once Route: IV; Rate: 100 ml/hr; Site: left antecubital; 06/28 07:23 Follow up: Response: No adverse reaction; IV Status: Infusion continued upon admission ha1 Medication: 06/27 19:06 VIS not applicable for this client. kj2 Outcome: 15:35 Decision to Hospitalize by Provider. shannon 19:09 Admitted to ER Hold. Please see [facility] for further documentation. jl7 19:09 Condition: stable 19:09 Instructed on the need for admit, Demonstrated understanding of instructions, 06/28 17:15 Patient left the ED. ss Signatures: Dispatcher [employer] EDSp Hope MD MD cha Blanchard, Shelby, RN RN ss Val Valdez RN RN jl7 Magdalena Dee RN RN 1 Rubi Mckeon RN RN [email or web address] Evelina Lawler 3 Yael Canales RN RN kj2 Melinda Joy 6 [place], Awudu, RN RN ay Corrections: (The following items were deleted from the chart) 06/27 14:39 14:36 Home Meds: clindamycin HCl 300 mg Oral cap 1 cap three times daily; kb3 kb3 :39 14:36 Home Meds: Hydrochlorothiazide Oral; kb3 kb3
--- NOTE | 2024-06-27 15:36 | EDPHYS ---
Physician Documentation [facility] Name: Armando Grajeda Age: 53 yrs Sex: Male : 1970 Arrival Date: 06/27/2024 Time: 14:16 Bed 17 Private MD: ED Physician Sp León HPI: 06/27 14:45 This 53 yrs old Male presents to ER via Wheelchair with complaints of shannon Breathing Difficulty. Historical: - Allergies: 14:36 No Known Allergies; kb3 - Home Meds: 14:42 2 unknown BP meds [Active]; jl7 - PMHx: 14:36 Hypertension; kb3 - Immunization history:: Adult Immunizations up to date, Client reports having NOT received the Covid vaccine. - Infectious Disease History:: Denies. - Social history:: Smoking status: Patient reports the use of cigarette tobacco products, smokes one pack cigarettes per day. Patient uses alcohol, on a daily basis. claims drinking about a 6 pack/day. ROS: 14:46 Constitutional: Negative for fever, chills, and weight loss, Eyes: Negative for injury, shannon pain, redness, and discharge, ENT: Negative for injury, pain, and discharge, Neck: Negative for injury, pain, and swelling, Abdomen/GI: Negative for abdominal pain, nausea, vomiting, diarrhea, and constipation, Back: Negative for injury and pain, : Negative for injury, bleeding, discharge, and swelling, Skin: Negative for injury, rash, and discoloration, Neuro: Negative for headache, weakness, numbness, tingling, and seizure, Psych: Negative for depression, anxiety, suicide ideation, homicidal ideation, and hallucinations, Allergy/Immunology: Negative for hives, rash, and allergies, Endocrine: Negative for neck swelling, polydipsia, polyuria, polyphagia, and marked weight changes, Hematologic/Lymphatic: Negative for swollen nodes, abnormal bleeding, and unusual bruising, 14:46 Cardiovascular: Positive for palpitations, 14:46 Respiratory: Positive for cough, wheezing, inspiratory, expiratory, 14:46 MS/extremity: Positive for pain, swelling, of the right leg and left leg, Exam: 14:46 Constitutional: This is a well developed, well nourished patient who is awake, alert, shannon and in no acute distress. Head/Face: Normocephalic, atraumatic. Eyes: Pupils equal round and reactive to light, extra-ocular motions intact. Lids and lashes normal. Conjunctiva and sclera are non-icteric and not injected. Cornea within normal limits. Periorbital areas with no swelling, redness, or edema. ENT: Nares patent. No nasal discharge, no septal abnormalities noted. Tympanic membranes are normal and external auditory canals are clear. Oropharynx with no redness, swelling, or masses, exudates, or evidence of obstruction, uvula midline. Mucous membranes moist. Neck: Trachea midline, no thyromegaly or masses palpated, and no cervical lymphadenopathy. Supple, full range of motion without nuchal rigidity, or vertebral point tenderness. No Meningismus. Chest/axilla: Normal chest wall appearance and motion. Nontender with no deformity. No lesions are appreciated. Abdomen/GI: Soft, non-tender, with normal bowel sounds. No distension or tympany. No guarding or rebound. No evidence of tenderness throughout. Back: No spinal tenderness. No costovertebral tenderness. Full range of motion. Male : Normal genitalia with no discharge or lesions. Skin: Warm, dry with normal turgor. Normal color with no rashes, no lesions, and no evidence of cellulitis. Neuro: Awake and alert, GCS 15, oriented to person, place, time, and situation. Cranial nerves II-XII grossly intact. Motor strength 5/5 in all extremities. Sensory grossly intact. Cerebellar exam normal. Normal gait. Psych: Awake, alert, with orientation to person, place and time. Behavior, mood, and affect are within normal limits. 14:46 Cardiovascular: Rate: tachycardic, actual rate is 103 bpm, Rhythm: regular, Pulses: Pulses are 4+ in bilateral radial, brachial, femoral, popliteal, posterior tibial and and dorsalis pedis arteries.. Heart sounds: normal, Edema: 2+ edema to level of left midcalf and right midcalf, JVD: is noted bilaterally, to 2 cm, 14:46 ECG was reviewed by the Attending Physician. 14:50 ECG was reviewed by the Attending Physician. shannon 20:26 Musculoskeletal/extremity: Circulation is intact in all extremities. Sensation intact. shannon Compartment Syndrome exam of affected extremity: is normal. DVT Exam: no pain, negative Homans' sign noted on exam, no appreciated bluish discoloration, no erythema, no increased warmth, pain, that is moderate, of the right leg and left leg, swelling, tenderness, Vital Signs: 14:31 BP 163 / 98; Pulse 103; Resp 32; Temp 98.2; Pulse Ox 86% on R/A; Weight 108.86 kg; jl7 Height 5 ft. 8 in. ; Pain 0/10; 16:45 Pulse 89; Resp 23; Pulse Ox 100% on BiPAP; jl7 17:07 BP 156 / 99; cc6 14:31 Body Mass Index 36.49 (108.86 kg, 172.72 cm) jl7 14:31 Pain Scale: Adult jl7 MDM: 14:22 Medical Screening Exam initiated shannon 14:48 Differential diagnosis: Anemia Anxiety Reaction asthma, CHF exacerbation, Chronic shannon Obstructive Pulmonary Disease Myocardial Infarction pneumonia, Psychogenic pulmonary edema, reactive airway disease, Sepsis Unstable Angina. Antibiotic administration: Levaquin given. Immunization status: Influenza vaccine: within last 5 years. Data reviewed: vital signs, nurses notes, lab test result(s), EKG, radiologic studies, plain films. Consideration of Admission/Observation Patient was admitted/placed on observation. Escalation of care including admission/observation considered. I considered the following discharge prescriptions or medication management in the emergency department Medications were administered in the Emergency Department. See MAR. Independent interpretation of the following test(s) in the Emergency Department EKG: See my EKG interpretation above. Test considered but Not performed: CT: NO CT CHEST RO PE. Historians other than the Patient: PT WELL INFORMED. Care significantly affected by the following chronic conditions: Hypertension, Obesity. Counseling: I had a detailed discussion with the patient and/or guardian regarding the historical points, exam findings, and any diagnostic results supporting the discharge/admit diagnosis, the presence of at least one elevated blood pressure reading (>120/80) during this emergency department visit, lab results, radiology results, the need for further work-up and treatment in the hospital. 20:27 Post IV fluid administration reassessment for Sepsis: Client not prescribed the 30 shannon mL/kg IVF due to: Lungs: Rales noted. CHF, JVD. 06/27 14:25 Order name: Basic Metabolic Panel; Complete Time: 16:47 [facility] 06/27 14:25 Order name: CBC with Diff; Complete Time: 15:25 [facility] 06/27 14:25 Order name: LFT's; Complete Time: 16:47 [facility] 06/27 14:25 Order name: Magnesium; Complete Time: 16:47 [facility] 06/27 14:25 Order name: NT PRO-BNP; Complete Time: 16:47 [facility] 06/27 14:25 Order name: PT-INR; Complete Time: 15:25 [facility] 06/27 14:25 Order name: Troponin HS; Complete Time: 16:47 [facility] 06/27 14:25 Order name: Blood Culture Adult (2) [facility] 06/27 14:25 Order name: Flu; Complete Time: 16:28 [facility] 06/27 14:25 Order name: SARS RAPID; Complete Time: 16:28 [facility] 06/27 14:45 Order name: Lactate w/ 2H reflex if indic.; Complete Time: 16:47 [facility] 06/27 14:46 Order name: ABG; Complete Time: 20:18 [facility] 06/27 16:49 Order name: Urine Osmolality; Complete Time: 20:18 [facility] 06/27 16:49 Order name: Urine Sodium Random; Complete Time: 20:18 [facility] 06/27 16:49 Order name: Osmolality, Serum; Complete Time: 20:18 [facility] 06/27 17:05 Order name: Urine Drug Screen; Complete Time: 20:18 [facility] 06/27 17:05 Order name: T4 Free; Complete Time: 20:18 [facility] 06/27 17:05 Order name: Thyroid Stimulating Hormone; Complete Time: 20:18 [facility] 06/27 17:05 Order name: Urinalysis w/ reflexes [facility] 06/27 17:05 Order name: Basic Metabolic Panel [facility] 06/27 17:05 Order name: Basic Metabolic Panel [facility] 06/27 17:05 Order name: Basic Metabolic Panel [facility] 06/27 17:05 Order name: Basic Metabolic Panel ED[facility] 06/27 17:05 Order name: Basic Metabolic Panel [facility] 06/27 17:05 Order name: Basic Metabolic Panel [facility] 06/27 17:05 Order name: Basic Metabolic Panel EDMS 06/27 17:05 Order name: Basic Metabolic Panel [facility] 06/27 17:05 Order name: CBC with Automated Diff EDMS 06/27 17:05 Order name: CBC with Automated Diff ED[facility] 06/27 17:05 Order name: CBC with Automated Diff EDMS 06/27 17:05 Order name: CBC with Automated Diff EDMS 06/27 17:05 Order name: CBC with Automated Diff EDMS 06/27 17:05 Order name: CBC with Automated Diff ED[facility] 06/27 17:05 Order name: CBC with Automated Diff EDMS 06/27 17:05 Order name: CBC with Automated Diff EDMS 06/27 17:05 Order name: Lipid Profile EDMS 06/27 17:05 Order name: Lipid Profile EDMS 06/27 17:05 Order name: Magnesium EDMS 06/27 17:05 Order name: Magnesium EDMS 06/27 17:05 Order name: Magnesium EDMS 06/27 17:05 Order name: Magnesium EDMS 06/27 17:05 Order name: Magnesium EDMS 06/27 17:05 Order name: Magnesium EDMS 06/27 17:05 Order name: Magnesium EDMS 06/27 17:05 Order name: Magnesium EDMS 06/27 17:05 Order name: Phosphorus EDMS 06/27 17:05 Order name: Phosphorus EDMS 06/27 17:05 Order name: Phosphorus EDMS 06/27 17:05 Order name: Phosphorus EDMS 06/27 17:05 Order name: Phosphorus EDMS 06/27 17:05 Order name: Phosphorus EDMS 06/27 17:05 Order name: Phosphorus EDMS 06/27 17:05 Order name: Phosphorus EDMS 06/27 17:05 Order name: Troponin High Sensitivity EDMS 06/27 17:05 Order name: Troponin High Sensitivity; Complete Time: 20:18 EDMS 06/27 17:05 Order name: Troponin High Sensitivity EDMS 06/27 17:05 Order name: Troponin High Sensitivity EDMS 06/27 17:05 Order name: Troponin High Sensitivity EDMS 06/27 17:05 Order name: Troponin High Sensitivity EDMS 06/28 04:33 Order name: Basic Metabolic Panel EDMS 06/28 09:10 Order name: Manual Differential EDMS 06/28 10:12 Order name: Basic Metabolic Panel EDMS 06/28 13:17 Order name: Cortisol EDMS 06/28 13:35 Order name: Osmolality, Urine EDMS 06/27 14:25 Order name: XRAY Chest (1 view); Complete Time: 15:25 shannon 06/27 15:06 Order name: BIPAP shannon 06/27 15:06 Order name: US Extremity Venous W Compression Jas; Complete Time: 16:28 shannon 06/27 14:25 Order name: EKG; Complete Time: 14:26 [facility] 06/27 14:25 Order name: Cardiac monitoring; Complete Time: 15: [facility] 06/27 14:25 Order name: EKG - Nurse/Tech; Complete Time: 15: [facility] 06/27 14:25 Order name: IV Saline Lock; Complete Time: 15: [facility] 06/27 14:25 Order name: Labs collected and sent; Complete Time: 15: [facility] 06/27 14:25 Order name: O2 Per Protocol; Complete Time: 15: [facility] 06/27 14:25 Order name: O2 Sat Monitoring; Complete Time: 15: [facility] 06/27 15:25 Order name: Labs - recollect needed: green top; Complete Time: 17: 06/27 16:49 Order name: Seizure Precautions; Complete Time: 17:29 [facility] EC:50 Rate is 99 beats/min. Rhythm is regular. QRS [place] is Normal. [place] interval is normal. QRS shannon interval is normal. QT interval is normal. No Q waves. T waves are Normal. No ST changes noted. Clinical impression: NSR w/ Non-specific ST/T Changes. Interpreted by me. Reviewed by me. Administered Medications: 15:06 Not Given (Duplicate Order): ns 0.9% 500 ml 500 ml IV at 125 ml/hr once [facility] 15:18 Drug: MethylPrednisoLONE IVP 125 mg IVP once Route: IVP; Site: left antecubital; jl7 17:29 Follow up: Response: No adverse reaction jl7 15:18 Drug: Levalbuterol Inhalation 3.75 mg Inhalation once Route: Inhalation; jl7 17:29 Follow up: Response: No adverse reaction jl7 15:18 Drug: Ipratropium Inhalation Aerosol 0.5 mg Inhalation once Route: Inhalation; jl7 17:30 Follow up: Response: No adverse reaction jl7 15:18 Drug: LevOfloxacin PO 750 mg PO once Route: PO; jl7 17:30 Follow up: Response: No adverse reaction jl7 15:54 Drug: Famotidine IVP 20 mg IVP once; dilute with 10 mL 0.9% NaCl; give over 2 minutes jl7 Route: IVP; Site: right antecubital; 17:29 Follow up: Response: No adverse reaction jl7 15:55 Drug: Furosemide IVP 40 mg IVP once; give over 2 minutes Route: IVP; Site: right jl7 antecubital; 17:30 Follow up: Response: No adverse reaction jl7 15:55 Drug: Aspirin PO Chewable Tablet 81 mg PO once Route: PO; jl7 17:30 Follow up: Response: No adverse reaction jl7 17:29 Drug: Enoxaparin Sub-Q 100 mg Sub-Q once Route: Sub-Q; Site: abdomen; jl7 18:39 Follow up: Response: No adverse reaction kj2 18:25 Drug: Magnesium Sulfate IVPB 2 grams IVPB once over 2 hrs Route: IVPB; Infused Over: 2 kj2 hrs; Site: left antecubital; 18:39 Drug: Potassium PO Effervescent Tablet 50 mEq PO once; dissolve in 4 ounces of water or kj2 juice Route: PO; 21:15 Drug: Thiamine IV 100 mg IV at bolus once Route: IV; Rate: bolus; Site: left ay antecubital; 06/28 07:00 Follow up: Response: No adverse reaction; IV Status: Completed infusion [facility] 06/27 21:15 Drug: Banana Bag - (Multivitamin IV 1 amp, NS 0.9% IV 1000 ml, Thiamine IV 100 mg, ay foLIC Acid IVPB 1 mg) IV at 100 ml/hr once Route: IV; Rate: 100 ml/hr; Site: left antecubital; 06/28 07:23 Follow up: Response: No adverse reaction; IV Status: Infusion continued upon admission ha1 Disposition Summary: 06/27/24 15:35 Hospitalization Ordered Notes: Hospitalization Status: Inpatient Admission shannon Provider: Emmanuel Johansen cha Condition: Fair shannon Problem: new shannon Symptoms: have improved shannon Bed/Room Type: Standard shannon Location: Intensive Care Unit(06/28/24 16:09) bd Room Assignment: 8-(06/28/24 16:09) bd Diagnosis - Hypoxemia shannon - Pneumonia due to other specified bacteria shannon - Pleural effusion in other conditions classified elsewhere shannon - Tobacco abuse counseling shannon - Tobacco use shannon - Chronic combined systolic (congestive) and diastolic (congestive) heart failure shannon - COPD/ Chronic obstructive pulmonary disease with (acute) exacerbation shannon - Hypo-osmolality and hyponatremia shannon - Non ST elevation [place] shannon - Alcohol use, unspecified shannon Forms: - Medication Reconciliation Form shannon - SBAR form shannon - Leadership Thank You Letter shannon Signatures: Dispatcher [employer] EDMS Karma wagner Sp Whitten MD MD cha Blanchard, Shelby, RN RN Val Anderson, RN RN jl7 Rubi Mckeon, GELA RN [email or web address] Neelam Donahue, LAWYERS LAW[employer]ERS rlh Yael Canales, RN RN kj2 Gaye Loredo, RN Magdalena Marlow RN ha1 Corrections: (The following items were deleted from the chart) 06/27 14:27 14:26 BASIC METABOLIC PANEL+C.LAB.BRZ ordered. EDMS EDMS 14:27 14:26 CBC+H.LAB.BRZ ordered. EDMS EDMS 14:27 14:26 HEPATIC FUNCTION+C.LAB.BRZ ordered. EDMS EDMS 14:27 14:26 MAGNESIUM+C.LAB.BRZ ordered. EDMS EDMS 14:27 14:26 PROBNP+C.LAB.BRZ ordered. EDMS EDMS 14:27 14:26 PROTIME (+INR)+COAG.LAB.BRZ ordered. EDMS EDMS 14:27 14:26 Troponin High Sensitivity+C.LAB.BRZ ordered. EDMS EDMS 14:27 14:26 BLOOD CULTURE*+BA.LAB.BRZ ordered. EDMS EDMS 14:27 14:26 Influenza Screen (A \T\ B)+BA.LAB.BRZ ordered. EDMS EDMS 14:27 14:26 SARS-COV-2 Antigen Rapid+I.LAB.BRZ ordered. EDMS EDMS 14:39 14:36 Home Meds: clindamycin HCl 300 mg Oral cap 1 cap three times daily; kb3 kb3 14:39 14:36 Home Meds: Hydrochlorothiazide Oral; kb3 kb3 14:45 14:45 LACTATE+C.LAB.BRZ ordered. EDMS EDMS 17:43 15:35 Telemetry/MedSurg (Inpatient) [facility] kb3 17:43 15:35 shannon kb3 06/28 16:09 06/27 17:43 [facility] ER HOLD kb3 bd 06/28 16:09 06/27 17:43 ERHOLD- kb3 bd
[2024-06-27 15:37] LABS: SARS-CoV-2 Antigen CONTROL BLUE LINE VIS/BG OK; SARS-CoV-2 Antigen Rapid Res Negative (Negative)
--- NOTE | 2024-06-27 16:07 | P.HP ---
Certification for Inpatient Patient admitted to: Inpatient With expected LOS: >2 Midnights Practitioner: I am a practitioner with admitting privileges, knowledge of patient current condition, hospital course, and medical plan of care. Services: Services provided to patient in accordance with Admission requirements found in Title 42 Section 412.3 of the Code of Federal Regulations Patient History Date of Service: 06/27/24 Reason for admission: Acute hypoxic respiratory failure secondary to COPD exacerbation History of Present Illness: Armando Grajeda is a 53 year old male with pmhx hypertension, COPD, CHF, alcohol and smoking abuse who presents to the ED with chief complaint of difficulty breathing that has worsened over the last week. at the bedside reports he takes 30 minutes to get out of the car and walking to the bathroom takes 40 minutes. He is not on home oxygen. On examination, he is lethargic, answering questions, tolerating 3 LNC, diaphoretic. He took his last drink at 2 PM today prior to arrival and smoke 2 1/2 packs of cigarretes when he drinks Laboratory evaluation significant for sodium 117, troponin 112.9, BNP 3410, WBC 11.1, ABG PH 7.31, PCO2 57.7, PO2 67.2, HCO3 28.5 Of note: He was discharged from [facility] where he finished antibiotics for his left foot wound. Armando will be admitted to hospitalist service for further treatment of acute hypoxic respiratory failure 2/2 CHF/COPD exacerbation Allergies NKDA Allergy (Uncoded 06/12/15 09:35) Unknown No Known Allergies Allergy (Uncoded 07/03/17 21:12) Unknown Home Medications: Cholecalciferol (Vitamin D3) [Vitamin D 2,000 Unit Tab] 5,000 unit PO DAILY 12/18/14 Simvastatin [Zocor] 10 mg PO BEDTIME 12/18/14 Cetirizine HCl [All Day Allergy Relief] 10 mg PO DAILY 06/27/24 Fluticasone Propion/Salmeterol [Wixela 100-50 Inhub] 1 puff PO BID 06/27/24 Folic Acid 2 mg PO DAILY 06/27/24 Hydralazine [Apresoline*] 25 mg PO BID 06/27/24 Metoprolol Tartrate [Lopressor*] 50 mg PO BID 06/27/24 Montelukast Sodium [Singulair] 10 mg PO DAILY 06/27/24 - Past Medical/Surgical History Diabetic: No -: HTN -: L Leg surgery - Family History Father -: Heart disease - Social History Alcohol use: Yes CD- Drugs: No Caffeine use: No Review of Systems Other: per HPI Physical Examination - Physical Exam General: Alert, In no apparent distress, Oriented x3 HEENT: Atraumatic, Normocephalic Neck: Supple, 2+ carotid pulse no bruit Respiratory: Clear to auscultation bilaterally, Normal air movement Cardiovascular: Normal pulses, Regular rate/rhythm, Normal S1 S2 Capillary refill: <2 Seconds Gastrointestinal: Normal bowel sounds, Soft and benign Musculoskeletal: No clubbing Integumentary: Other (Left heel wound) Neurological: Normal speech, Normal tone - Studies Laboratory Data (last 24 hrs) 06/27/24 06/27/24 14:58 14:58 WBC 11.10 H Hgb 13.4 L Hct 37.9 L Plt Count 310 PT 14.0 H INR 1.34 Microbiology Data (last 24 hrs): 06/27/24 14:58 Nasopharnyx Influenza Type A Antigen Screen - Final 06/27/24 14:58 Nasopharnyx Influenza Type B Antigen Screen - Final Assessment and Plan - Plan Assessment and Plan Acute hypoxic failure 2/2 COPD/CHF exacerbation Hyponatremia 2/2 Fluid volume overload Elevated troponin -BNP 3410, Na 117 -Serial troponin 112/107 -Lasix BID -Duonebs -Levaquin PO -Oxygen protocol, Bipap at night -monitor sodium daily -ECHO -Cardiology consulted HTN -continue home medications when appropriate Alcohol abuse Smoking abuse -Last alcoholic drink was at 2 pm 06/27 -expected withdrawl tomorrow 06/28 -librium q6h -ativan PRN -Cessation education provided -Tox screen pending Left foot wound -consult Dr. Dubon -Current patient of Dr. Dubon's DVT ppx Lovenox Full code LOS 2-3 days Discharge Plan: Home Plan to discharge in: 48 Hours - Advance Directives Does patient have a Living Will: No Does patient have a Durable POA for Healthcare: No
--- NOTE | 2024-06-27 16:20 | RAD REPORT ---
EXAMINATION: US LOWER EXTREMITY VENOUS DOPPLER BILATERAL CLINICAL INDICATION: Male, 53 years old.Pain;Swelling TECHNIQUE: Complete bilateral duplex sonography of the lower extremity veins was performed. The exami nation included compression for vein patency, color Doppler imaging and flow augmentation in response to distal compression of the distal external iliac, common femoral, femoral, popliteal, rogerio yuliana, tibial and great saphenous veins. [id number]. COMPARISON: No prior exams FINDINGS: Duplex sonography imaging demonstrates all deep examined to be fully compressible with spontaneous, p hasic and augmented flow bilaterally. IMPRESSION: No evidence of deep venous thrombosis seen in either lower extremity.
[2024-06-27 16:41] LABS: ALT/SGPT 31 U/L (16-61); AST/SGOT 38 U/L (15-37); Albumin 2.5 g/dL (3.4-5.0); Albumin/Globulin Ratio 0.5 (1.1-1.8); Alkaline Phosphatase 68 U/L (45-117); Anion Gap 14.7 mEq/L (5.0-15.0); BUN Blood Urea Nitrogen 7 mg/dL (7-18); Bicarbonate 26 mEq/L (21-32); Bilirubin Total 0.3 mg/dL (0.2-1.0); Globulin 5.3 g/dL (2.3-3.5); Glomerular Filtration Rate 111 ml/min (=/>90); Glucose Level 123 mg/dL (74-106); Magnesium 1.7 mg/dL (1.6-2.4); NT PRO-BNP 3410 pg/mL (<125); Potassium 3.7 mEq/L (3.5-5.1); Protein, Total 7.8 g/dL (6.4-8.2); Troponin High Sensitivity 112.9 pg/mL (<58.9)
[2024-06-27 16:43] LABS: Bilirubin Direct < 0.2 mg/dL (0-0.2); Bilirubin Indirect, Calculated 0.1 mg/dL (0.2-0.8)
[2024-06-27 16:45] LABS: Sodium Level 117 mEq/L (136-145)
[2024-06-27] MEDS ORDERED: ACETAMINOPHEN 325 MG TABLET PO PRN (16:55)
[2024-06-27] MEDS: FUROSEMIDE 40 MG TABLET PO SCH (17:00)
[2024-06-27 17:02] LABS: Arterial Blood Carboxyhemoglob 2.9 % (0-1.5); Blood Gas Oxyhemoglobin 86.1 % (94-97); Blood Gas THB 13.8 g/dl (12-18); Blood O2 Saturation 90.2 % (92-98.5)
[2024-06-27] MEDS ORDERED: ENOXAPARIN 100 MG/ML SYR SQ ONE (17:03)
[2024-06-27] MEDS: FLU (Fluarix Triv) TS24-25(6MOS UP)/PF 45 MCG/0.5 ML Syringe IM ONE (18:00)
[2024-06-27] MEDS: PNEUMOCOCCAL VACCINE 0.5 ML IMVAC ONE (18:00)
[2024-06-27] MEDS: chlordiazePOXIDE HCl 25 MG CAP PO SCH (18:00)
[2024-06-27 18:16] LABS: Thyroid Stimulating Hormone 0.909 uIU/mL (0.358-3.740)
[2024-06-27 18:17] LABS: Troponin High Sensitivity 107.3 pg/mL (<58.9)
[2024-06-27] MEDS ORDERED: POTASSIUM 25 MEQ EFFERV TAB ONE (18:22)
[2024-06-27] MEDS ORDERED: Magnesium Sulfate 2gm IVPB 2 G/50 ML BAG IV ONE (18:22)
[2024-06-27 19:21] LABS: Barbiturates NEGATIVE (NEGATIVE); Benzodiazepines NEGATIVE (NEGATIVE); Cocaine NEGATIVE (NEGATIVE); METHAMPHETAM NEGATIVE (NEGATIVE); Methadone NEGATIVE (NEGATIVE); Opiates NEGATIVE (NEGATIVE); Phencyclidine NEGATIVE (NEGATIVE); THC Cannibis NEGATIVE (NEGATIVE)
[2024-06-27] MEDS: NA CHLORIDE 0.9% 1,000 ML IV SCH (20:00)
[2024-06-27] MEDS ORDERED: FUROSEMIDE 40 MG TABLET ONE (20:24)
[2024-06-27] MEDS ORDERED: ALBUTEROL 2.5 MG/3 ML NEB SOL ONE (20:24)
[2024-06-27] MEDS ORDERED: chlordiazePOXIDE HCl 25 MG CAP ONE (20:25)
[2024-06-27] MEDS ORDERED: FLU (Fluarix Triv) TS24-25(6MOS UP)/PF 45 MCG/0.5 ML Syringe IM ONE (20:26)
[2024-06-27] MEDS ORDERED: PNEUMOCOCCAL VACCINE 0.5 ML IMVAC ONE (20:26)
[2024-06-27] MEDS ORDERED: NA CHLORIDE 0.9% 1,000 ML ONE (20:27)
[2024-06-27] MEDS: IPRATROPIUM BROM 0.5MG/2.5ML NEB SCH (20:30)
[2024-06-27] MEDS: ALBUTEROL 2.5 MG/3 ML NEB SOL NEB SCH (20:30)
[2024-06-27] MEDS ORDERED: THIAMINE 200 MG/2 ML INJ ONE (21:09)
[2024-06-27] MEDS ORDERED: FOLIC ACID 5 MG/ML VIAL ONE (21:10)
[2024-06-27] MEDS ORDERED: MULTIVITAMINS 10 ML VIAL (INJ) IV ONE (21:10)
[2024-06-27] MEDS: METOPROLOL TARTRATE 5 MG/5 ML INJ IV STA (22:35)
[2024-06-27] MEDS ORDERED: METOPROLOL TARTRATE 5 MG/5 ML INJ IV ONE (22:39)
[2024-06-28] MEDS ORDERED: ALBUTEROL 2.5 MG/3 ML NEB SOL ONE (01:22)
[2024-06-28] MEDS ORDERED: IPRATROPIUM BROM 0.5MG/2.5ML ONE ×3 (01:22→14:51)
[2024-06-28 04:28] LABS: Anion Gap 13.5 mEq/L (5.0-15.0); Potassium 4.5 mEq/L (3.5-5.1)
[2024-06-28] MEDS ORDERED: chlordiazePOXIDE HCl 25 MG CAP ONE ×2 (05:49→12:34)
[2024-06-28 06:40] LABS: Absolute Lymphocytes (CBC) 0.7 K/uL (0.7-4.9); Absolute Monocytes 1.8 K/uL (0.1-1.3); Absolute Neutrophil 5.8 K/uL (1.8-8.0); Basophils % 0.5 % (0-1.3); Hematocrit 45.5 % (39.6-49.0); Hemoglobin 15.5 g/dL (13.6-17.9); Lymphocytes % 8.1 % (15.3-44.8); MCV 91.3 fL (80-100); MPV 10.3 fL (7.6-11.3); Monocytes % 21.3 % (3.3-12.3); Neutrophils % 70.1 % (41.7-73.7); Nucleated Red Blood Cells % 0.2 % (0-0); Platelets 373 thou/uL (152-406); RBC Red Blood Cell Count 4.98 M/uL (4.33-5.43); Red Cell Distribution Width 16.2 % (12.1-15.2)
[2024-06-28 06:55] LABS: Anion Gap 12.5 mEq/L (5.0-15.0); Magnesium 2.8 mg/dL (1.6-2.4); Phosphorus 3.9 mg/dL (2.5-4.9); Potassium 4.5 mEq/L (3.5-5.1)
[2024-06-28] MEDS: AMIODARONE HCL 150 MG in D5W 100 ML IV STA (07:23)
[2024-06-28] MEDS ORDERED: METOPROLOL TAR 50 MG TAB ONE (07:40)
[2024-06-28] MEDS ORDERED: ENOXAPARIN 100 MG/ML SYR SQ ONE (07:40)
[2024-06-28] MEDS ORDERED: levoFLOXacin 750 MG TAB ONE (07:40)
[2024-06-28] MEDS ORDERED: FUROSEMIDE 20 MG TABLET ONE (07:40)
[2024-06-28] MEDS ORDERED: AMIODARONE IN DEXTROSE,ISO-OSM 0 MG/0 ML BAG IV ONE (07:41)
[2024-06-28] MEDS: METOPROLOL TAR 50 MG TAB PO ONE (08:00)
[2024-06-28] MEDS: AMIODARONE HCL 900 MG in Dextrose 5%-Water 482 ML IV SCH (08:00)
[2024-06-28] MEDS: levoFLOXacin 750 MG TAB PO SCH (08:10)
[2024-06-28] MEDS: Enoxaparin 120 MG/0.8 ML SYR SQ SCH (08:11)
[2024-06-28] MEDS ORDERED: ENOXAPARIN 40 MG/0.4 ML SQ SCH (09:00)
[2024-06-28 09:10] LABS: Anisocytosis 1+; Atypical Lymphocytes 6 %; Blood Morphology Comment NOTED (NOT SEEN); Differential Total Cells Count 100; Lymphocytes 4 % (15-42); Monocytes 19 % (0-10); Platelet Estimate ADEQ; Platelets, Giant FEW; Segmented Neutrophils 71 % (40-80)
[2024-06-28 10:11] LABS: Anion Gap 9.5 mEq/L (5.0-15.0); Potassium 5.5 mEq/L (3.5-5.1); Troponin High Sensitivity 48.8 pg/mL (<58.9)
[2024-06-28] MEDS ORDERED: LIDOCAINE HCL JELLY 2% 6 ML SYRINGE TOP ONE (11:58)
--- NOTE | 2024-06-28 12:00 | P.CNS ---
Date of Consult: 06/28/24 Chief Complaint: Acute hypoxic respiratory failure secondary to COPD exacerbation History of Present Illness: Patient with PMH of HTN, ETOH and tobacco use, presented with worsening SOB, CASTRO for last few months, denies chest pain, no palpitations, no dizzy speels, no syncope. Allergies No Known Allergies Allergy (Unverified 06/28/24 07:29) Home medications list reviewed: Yes Home Medications: Cholecalciferol (Vitamin D3) [Vitamin D 2,000 Unit Tab] 5,000 unit PO DAILY 12/18/14 Simvastatin [Zocor] 10 mg PO BEDTIME 12/18/14 Cetirizine HCl [All Day Allergy Relief] 10 mg PO DAILY 06/27/24 Fluticasone Propion/Salmeterol [Wixela 100-50 Inhub] 1 puff PO BID 06/27/24 Folic Acid 2 mg PO DAILY 06/27/24 Hydralazine [Apresoline*] 25 mg PO BID 06/27/24 Metoprolol Tartrate [Lopressor*] 50 mg PO BID 06/27/24 Montelukast Sodium [Singulair] 10 mg PO DAILY 06/27/24 - Past Medical/Surgical History Diabetic: No -: HTN -: L Leg surgery - Family History Father Medical History: Heart disease - Social History Smoking Status: Former smoker Alcohol use: Yes CD- Drugs: No Caffeine use: No Place of Residence: Home Review of Systems 10-point ROS is otherwise unremarkable Physical Examination Temp Pulse Resp BP Pulse Ox 98.8 F 132 H 20 112/82 96 06/28/24 07:18 06/28/24 10:30 06/28/24 10:30 06/28/24 10:30 06/28/24 10:30 General: Alert, In no apparent distress HEENT: Atraumatic, PERRLA, Mucous membr. moist/pink, EOMI, Sclerae nonicteric Neck: Supple, 2+ carotid pulse no bruit, No LAD, Without JVD or thyroid abnormality Respiratory: Clear to auscultation bilaterally, Normal air movement Cardiovascular: Regular rate/rhythm, Normal S1 S2 Gastrointestinal: Normal bowel sounds, No tenderness Musculoskeletal: No tenderness Integumentary: No rashes Neurological: Normal gait, Normal speech, Normal tone, Normal affect Lymphatics: No axilla or inguinal lymphadenopathy Laboratory Data (last 24 hrs) 06/27/24 06/27/24 06/27/24 16:11 14:58 14:58 WBC 11.10 H Hgb 13.4 L Hct 37.9 L Plt Count 310 PT 14.0 H INR 1.34 Sodium 117 L* Potassium 3.7 BUN 7 Creatinine 0.66 L Glucose 123 H Magnesium 1.7 Total Bilirubin 0.3 AST 38 H ALT 31 Alkaline Phosphatase 68 - Problems (1) Atrial fibrillation Current Visit: Yes Status: Acute Plan: Patient was started on amiodarone drip after IV bolus continue drip for 24 hours, NPO after mid night for possible BRIANA DCCV in am continue Lovenox (2) NSTEMI (non-ST elevated myocardial infarction) Current Visit: Yes Status: Acute Plan: most likely demand ischemia but patient got multiple risk factors for CAD NPO for coronary angiogram in am continue ASA and Lovenox. (3) SOB (shortness of breath) Current Visit: Yes Status: Acute Plan: get Echo, BNP is slight elevated. recommend Lasix 40 mg IV BID Monitor input and output and electrolytes.
[2024-06-28] MEDS ORDERED: LORAZEPAM 1 MG TABLET ONE (12:34)
[2024-06-28] MEDS: LORAZEPAM 1 MG TABLET PO PRN (12:41)
[2024-06-28] MEDS: COSYNTROPIN 0.25 MG VIAL IV ONE (14:15)
[2024-06-28] MEDS: LEVALBUTEROL 0.63 MG/3 ML NEB NEB PRN (14:30)
[2024-06-28] MEDS ORDERED: LEVALBUTEROL 0.63 MG/3 ML NEB ONE (14:51)
--- NOTE | 2024-06-28 15:36 | P.PN ---
Date of Service: 06/28/24 Subjective: Developed afib rvr overnight Denies other complaints now ROS: 10 point ROS as noted above, otherwise negative Physical exam GEN: Alert, oriented, NAD HEENT: Normal conjunctiva, sclera anicteric CV: irregular rate/rhythm, afib rvr rate 120s Pulm: Nonlabored respirations on room air ABD: Soft, nontender, nondistended MSK: No joint tenderness Integumentary: No rashes Neuro: Normal speech, normal affect Vitals reviewed Assessment and Plan Acute hypoxic failure 2/2 COPD/CHF exacerbation New onset afib with rvr Hyponatremia 2/2 Fluid volume overload Elevated troponin Troponin trended flat/down Developed A-fib RVR overnight, started on amiodarone and therapeutic Lovenox this morning Cardiology consulted, echocardiogram ordered Neurology following for hyponatremia, slightly improved so far N.p.o. after midnight in anticipation of possible BRIANA cardioversion or coronary angiogram tomorrow Urinary retention Shaw catheter placed with 1000ml urine returned HTN -continue home medications when appropriate Alcohol abuse Smoking abuse -Last alcoholic drink was at 2 pm 06/27 -librium q6h -ativan PRN -Cessation education provided -Tox screen pending Left foot wound -consult Dr. Dubon -Current patient of Dr. Dubon's DVT ppx Lovenox Full code LOS 2-3 days Discharge Plan: Home Plan to discharge in: 48 Hours Time Spent Managing Pts Care (In Minutes): 35
[2024-06-28] MEDS: FLU (Fluarix Triv) TS24-25(6MOS UP)/PF 45 MCG/0.5 ML Syringe IM ONE (18:30)
--- NOTE | 2024-06-28 18:41 | CON ---
Date of Consultation: 06/28/2024 Reason For Consultation: Hyponatremia. History Of Present Illness: This is a pleasant 53-year-old gentleman with significant past medical h istory of congestive heart failure, hypertension, COPD, the patient was in his regular state of healt h. The patient apparently went to refill his medication. It was replaced, hydrochlorothiazide accor ding to the patient. The patient started to have increasing in his leg swelling with shortness of br eath and orthopnea. For that reason, reported to the hospital, found to have severe hyponatremia 117 and over volume. For that reason, the patient was admitted and we have been consulted. The patient denied taking any nonsteroidal, no IV contrast. The patient active alcohol drinking up to 12 bottle s daily. Past Medical History: Includes: 1.Congestive heart failure. 2.COPD. 3.Hypertension. 4.Alcoholic disease. Allergies: NO KNOWN DRUGS ALLERGY. Home Medications: Include hydrochlorothiazide, simvastatin, cetirizine, flucytosine, hydralazine, me toprolol, Singulair. Past Surgical History: Include left leg surgery. Family History: Positive for hypertension and CAD. Social History: Active alcohol. Denied smoking. Denied drugs abuse. Review of Systems: Head and Neck: No red eye. No ear pain. GI: No nausea. No vomiting. : No polyuria. No dysuria. No hematuria. MESS COOK: Not applicable. Respiratory: Has shortness of breath. Cardiovascular: Has leg swelling. Has orthopnea. Endocrine: No polydipsia. Skin: No rash. Neuro: Has neuropathy. Musculoskeletal: Generalized fatigue. Physical Examination: Vital Signs: Blood pressure 112/82, pulse of 100. Chest: Crackles, bilateral. Heart: S1, S2. Systolic murmur. Abdomen: Soft, nontender. Extremities: +3 edema. Neurologic: Alert. No focality. Laboratory Data: WBC 8.2, hemoglobin 15.5. Sodium upon admission 117, that at 4 o'clock in the even ing, today in the morning after almost 12 hours 124 with a rise of 7 points and repeated at 9 o'clock , which is after 5 hours more it is 120, potassium 5.5, bicarb 29, BUN 14, creatinine 0.7, calcium 8. 5, phosphorus 3.9, albumin 2.5. TSH 0.9. Cortisol level 8.5. Urine osmolality 251, urine sodium 42 . Chest x-ray, cardiomegaly with congestion, bilateral. DVT study for the lower extremity was negat ryne. Current Medications: The patient is on include albuterol, Levaquin 750 daily, amiodarone, metoprolol 50 b.i.d., chlordiazepoxide, Tylenol, Lasix 40 b.i.d., IV fluid at 75 per hour of normal saline. Assessment And Plan: 1.Hyponatremia, multifactorial, secondary to dilutional, superimposed with hydrochlorothiazide use, over volume. I am going to go ahead and discontinue IV fluid. I agree with holding hydrochlorothiaz divine. I agree with current Lasix dose. The patient has appropriate rise in the sodium. Discontinue IV fluid and we will follow up. 2.Hypothyroidism and adrenal insufficiency. Hypothyroidism has been ruled out. Adrenal insufficien cy, cortisol level on the lower side. I am going to go ahead and send cortisol stimulation test and we will follow up. 3.Hypertension, controlled. We will utilize blood pressure for more diuresis. 4.Anasarca, possible secondary to cardiorenal syndrome. We will optimize the patient's fluid status with diuresis. Agree with current dose of Lasix. We will follow up echocardiogram. We will send f or P/C ratio. 5.Hypothyroidism has been ruled out. 6.COPD with exacerbation. Continue current treatment as by primary. 7.CHF with exacerbation. We will optimize the fluid status as above. MITA/SRAVANI Voice ID: [id number] Report ID: [id number]
[2024-06-28] MEDS: METOPROLOL TAR 50 MG TAB PO SCH (21:07)
[2024-06-29] MEDS: AMIODARONE IN DEXTROSE,ISO-OSM 360 MG/200 ML BAG IV ONE (06:54)
[2024-06-29] MEDS ORDERED: COSYNTROPIN 0.25 MG VIAL IV ONE (08:00)
[2024-06-29 08:15] LABS: Absolute Lymphocytes (CBC) 1.2 K/uL (0.7-4.9); Absolute Monocytes 1.8 K/uL (0.1-1.3); Absolute Neutrophil 9.7 K/uL (1.8-8.0); Basophils % 0.2 % (0-1.3); Eosinophils % 0.1 % (0-4.4); Hematocrit 43.3 % (39.6-49.0); Hemoglobin 14.3 g/dL (13.6-17.9); Lymphocytes % 9.6 % (15.3-44.8); MCH 30.2 pg (27.0-35.0); MCV 91.7 fL (80-100); MPV 9.7 fL (7.6-11.3); Monocytes % 14.1 % (3.3-12.3); Nucleated Red Blood Cells % 0.1 % (0-0); Platelets 352 thou/uL (152-406); RBC Red Blood Cell Count 4.72 M/uL (4.33-5.43); Red Cell Distribution Width 16.1 % (12.1-15.2)
[2024-06-29] MEDS: ASPIRIN 81 MG CHEWABLE TABLET PO SCH (08:18)
[2024-06-29 08:38] LABS: Albumin 2.2 g/dL (3.4-5.0); Anion Gap 8.4 mEq/L (5.0-15.0); Magnesium 2.3 mg/dL (1.6-2.4); Phosphorus 3.4 mg/dL (2.5-4.9); Potassium 4.4 mEq/L (3.5-5.1); Uric Acid 6.6 mg/dL (3.5-7.2)
[2024-06-29] MEDS: AMIODARONE HCL 150 MG in D5W 100 ML IV STA (09:49)
[2024-06-29 09:58] LABS: Specific Gravity 1.014 (1.005-1.030); Sqamous Epithelial <5 /HPF (None Seen); Urine Bacteria None Seen /HPF (<20); Urine Bilirubin NEGATIVE (Negative); Urine Blood 1+ (Negative); Urine Clarity Turbid (Clear); Urine Color Light-Yellow (Yellow); Urine Culture Reflex Order REFLEXED; Urine Glucose NEGATIVE (Negative); Urine Ketones NEGATIVE (Negative); Urine Microscopic Reflex YN ORDER UMIC; Urine Nitrite NEGATIVE (Negative); Urine Protein NEGATIVE (Negative); Urine RBC <5 /HPF (None Seen); Urine Urobilinogen Normal (Normal); Urine WBC 20-50 /HPF (<5); Urine pH 6.5 (5.0-7.0)
[2024-06-29] MEDS ORDERED: AMIODARONE HCL 900 MG in Dextrose 5%-Water 482 ML IV SCH (10:00)
--- NOTE | 2024-06-29 10:39 | P.PN ---
Subjective Date of Service: 06/29/24 Chief Complaint: Acute hypoxic respiratory failure secondary to COPD exacerbation Subjective: No new changes, No C/O voiced, Tolerating diet, Ambulating, Improving Review of Systems 10-point ROS is otherwise unremarkable Physical Examination - Vital Signs Temperature: 98.3 F Blood Pressure: 135/100 Pulse: 141 Respirations: 24 Pulse Ox (%): 95 - Physical Exam General: Alert, In no apparent distress HEENT: Atraumatic, PERRLA, EOMI Neck: Supple, JVD not distended Respiratory: Clear to auscultation bilaterally, Normal air movement Cardiovascular: Regular rate/rhythm, Normal S1 S2 Gastrointestinal: Normal bowel sounds, No tenderness Musculoskeletal: No tenderness Integumentary: No rashes Neurological: Normal speech, Normal tone, Normal affect Lymphatics: No axilla or inguinal lymphadenopathy - Studies Medications List Reviewed: Yes Assessment And Plan - Current Problems (Diagnosis) (1) Atrial fibrillation Current Visit: Yes Status: Acute Plan: Patient was started on amiodarone drip after IV bolus continue drip for 24 hours, give nother amidarone 150 mg IV x1 again NPO after mid night for possible BRIANA DCCV in am continue Lovenox (2) NSTEMI (non-ST elevated myocardial infarction) Current Visit: Yes Status: Acute Plan: most likely demand ischemia but patient got multiple risk factors for CAD patient was suppose to get coronary angiogram but Na still low. will hold until Na is more than 130. continue ASA and Lovenox. (3) SOB (shortness of breath) Current Visit: Yes Status: Acute Plan: get Echo, BNP is slight elevated. recommend Lasix 40 mg IV BID Monitor input and output and electrolytes.
[2024-06-29 10:45] LABS: UR PROTEIN 30.7 mg/dL (<11.9); Urine Protein/Creatinine Ratio 0.38 ratio (<0.15)
[2024-06-29 10:56] LABS: UR POTASSIUM < 6.0 mmol/L (20-40); UR SODIUM < 15 mmol/L (27-287)
[2024-06-29 12:18] LABS: Anion Gap 7.3 mEq/L (5.0-15.0); Potassium 4.3 mEq/L (3.5-5.1)
--- NOTE | 2024-06-29 12:34 | EKG ---
Test Date: 2024-06-27 Test Time: 14:27:49 Senior Stack Engineer: JEOVANY MEASUREMENT RESULTS: Intervals: Rate: 100 MI: 142 QRSD: 96 QT: 358 QTc: 461 [place]: P: 79 MI: 142 QRS: -60 T: 80 INTERPRETIVE STATEMENTS: Normal sinus rhythm Possible Left atrial enlargement Left axis deviation Low voltage QRS Nonspecific T wave abnormality Prolonged QT Abnormal ECG No previous ECG available for comparison Electronically Signed On 06-29-24 12:31:24 FACILITY ATTENDANT by Gustavo Lee
--- NOTE | 2024-06-29 15:25 | P.PN ---
Date of Service: 06/29/24 Subjective: sodium and HR slowly improving No acute events overnight Denies complaints at this time ROS: 10 point ROS as noted above, otherwise negative Physical exam GEN: Alert, oriented, NAD HEENT: Normal conjunctiva, sclera anicteric CV: irregular rate/rhythm, afib rvr rate 120s, anasarca present Pulm: Nonlabored respirations on room air ABD: Soft, nontender, nondistended MSK: No joint tenderness Integumentary: No rashes Neuro: Normal speech, normal affect Vitals reviewed Assessment and Plan Acute hypoxic failure 2/2 COPD/CHF exacerbation New onset afib with rvr Hyponatremia 2/2 Fluid volume overload Elevated troponin Troponin trended flat/down Developed A-fib RVR overnight, started on amiodarone and therapeutic Lovenox Bolused again with IV amio today Cardiology consulted, echocardiogram ordered Nephrology following for hyponatremia, improving N.p.o. after midnight in anticipation of possible BRIANA cardioversion or coronary angiogram tomorrow morning if sodium improved Urinary retention Shaw catheter placed with 1000ml urine returned HTN -continue home medications when appropriate Alcohol abuse Smoking abuse -Last alcoholic drink was at 2 pm 06/27 -librium q6h -ativan PRN -Cessation education provided -Tox screen pending Left foot wound -consult Dr. Dubon -Current patient of Dr. Dubon's DVT ppx Lovenox Full code LOS 2-3 days Discharge Plan: Home Plan to discharge in: 48 Hours Time Spent Managing Pts Care (In Minutes): 35
[2024-06-29] MEDS ORDERED: FUROSEMIDE 40 MG/4 ML VIAL IV SCH (17:00)
[2024-06-29] MEDS: AMOX/K CLAV 875 MG TAB PO SCH (17:17)
[2024-06-29] MEDS: FUROSEMIDE 40 MG in NA CHLORIDE 0.9% 50 ML IV SCH (17:18)
[2024-06-29 17:29] LABS: Anion Gap 9.7 mEq/L (5.0-15.0); Potassium 4.7 mEq/L (3.5-5.1)
--- NOTE | 2024-06-29 17:43 | PN ---
Date of Progress Note: 06/29/2024 Subjective: The patient was admitted to the hospital with atrial fibrillation, RVR, CHF with exacerb ation. Physical Examination: Vital Signs: Blood pressure 135/100, pulse of 144. The patient had good urine output of 1800, negat ryne of 500. Chest: Crackles, bilateral. Heart: S1, S2. Systolic murmur. Irregular. Abdomen: Soft, nontender. Extremities: +2 edema. Neurologic: Alert. No focality. Laboratory Data: Hemoglobin 14.3. Sodium 128, potassium 4.4, bicarb 35, BUN 18, creatinine 0.7, heather cium 8.4, uric acid 6.6, phosphorus 3.4, magnesium 2.3, albumin 2.2, corrected calcium is 9.8. Corti anabela 8.5. TSH within normal limit. Urine sodium less than 15. PC ratio 0.3. Urinalysis; wbc of 50. Current Medications: The patient on include aspirin, Lovenox, amiodarone, chlordiazepoxide, Tylenol, Lasix 40 b.i.d. Assessment And Plan: 1. Hyponatremia, dilutional, secondary to congestive heart failure, appropriate trending up on the so dium. We will continue diuresis. I am going to change the Lasix to IV and we will continue to monit or. 2. Still waiting for ACTH stimulation test giving the low cortisol level and we will follow up. 3. Hypertension. Continue to utilize blood pressure for more diuresis and rate control. 4. Congestive heart failure with exacerbation as above. We will optimize fluid status. 5. Urinary tract infection. I am going to go ahead and start the patient on Augmentin and we will fo llow up the patient. ISMAEL Voice ID: [id number] Report ID: [id number]
[2024-06-29] MEDS: IPRATROPIUM BROM 0.5MG/2.5ML ONE (20:38)
[2024-06-29] MEDS: METOPROLOL TAR 50 MG TAB PO SCH (20:39)
[2024-06-29] MEDS: Enoxaparin 120 MG/0.8 ML SYR SQ ONE (20:40)
[2024-06-30 00:21] LABS: Anion Gap 6.8 mEq/L (5.0-15.0); Potassium 3.8 mEq/L (3.5-5.1)
[2024-06-30 05:51] LABS: Absolute Basophils 0.1 K/uL (0-0.5); Absolute Monocytes 1.7 K/uL (0.1-1.3); Absolute Neutrophil 8.8 K/uL (1.8-8.0); Basophils % 0.8 % (0-1.3); Eosinophils % 0.2 % (0-4.4); Hematocrit 43.2 % (39.6-49.0); Hemoglobin 14.1 g/dL (13.6-17.9); Lymphocytes % 8.7 % (15.3-44.8); MCH 30.2 pg (27.0-35.0); MCHC 32.6 g/dL (32.0-36.0); MCV 92.5 fL (80-100); MPV 10.6 fL (7.6-11.3); Monocytes % 14.8 % (3.3-12.3); Neutrophils % 75.5 % (41.7-73.7); Nucleated Red Blood Cells % 0.2 % (0-0); Platelets 362 thou/uL (152-406); RBC Red Blood Cell Count 4.67 M/uL (4.33-5.43)
[2024-06-30 05:57] LABS: Albumin 2.2 g/dL (3.4-5.0); Magnesium 2.3 mg/dL (1.6-2.4); Phosphorus 3.7 mg/dL (2.5-4.9)
[2024-06-30] MEDS: COSYNTROPIN 0.25 MG VIAL IV ONE (07:14)
--- NOTE | 2024-06-30 07:19 | ECHO ---
HEIGHT: 5 ft 8 in WEIGHT: 238 lb 12.8 oz DATE OF STUDY: 06/28/[address]: Neelam Donahue NP 2-DIMENSIONAL: YES M.MODE: YES DOPPLER: YES COLOR FLOW: YES TDS: NO PORTABLE: YES DEFINITY: NO BUBBLE STUDY: NO DIAGNOSIS: CONGESTIVE HEART FAILURE CARDIAC HISTORY: CATHERIZATION: NO SURGERY: NO PROSTHETIC VALVE: NO PACEMAKER: NO MEASUREMENTS (cm) DIASTOLIC (NORMALS) SYSTOLIC (NORMALS) IVSd 1.1 (0.6-1.2) LA Diam 3.7 (1.9-4.0) LVEF 40-50% LVIDd 4.5 (3.5-5.7) LVIDs 3.1 (2.0-3.5) %FS 31% LVPWd 1.1 (0.6-1.2) Ao Diam 3.3 (2.0-3.7) 2 DIMENSIONAL ASSESSMENT: RIGHT ATRIUM: NORMAL LEFT ATRIUM: MILDLY DILATED RIGHT VENTRICLE: NORMAL LEFT VENTRICLE: NORMAL TRICUSPID VALVE: TRACE TRICUSPID REGURGITATION MITRAL VALVE: TRACE MITRAL REGURGITATION PULMONIC VALVE: NORMAL AORTIC VALVE: NORMAL PERICARDIAL EFFUSION: SMALL TO MODERATE MOSTLY POSTERIOR EFFUSION AORTIC ROOT: NORMAL LEFT VENTRICULAR WALL MOTION: HARD TO ASSESS DUE TO ARRHYTHMIA. DOPPLER/COLOR FLOW: UNABLE TO ASSESS DUE TO ARRHYTHMIA. COMMENTS: 1. LEFT VENTRICULAR SYSTOLIC FUNCTION IS VARIABLE DUE TO ARRHYTHMIA. ROUGHLY LEFT VENTRICULAR EJECTION FRACTION IS 40-50%, WALL MOTIONS ARE NORMAL. 2. ELEVATED FILLING PRESSURE. RIGHT ATRIAL PRESSURE 15-20 mmHg. 3. SMALL TO MODERATE CIRCUMFRENTIAL PERICARDIAL EFFUSION. MOSTLY POSTERIOR. NO SIGN OF TAMPONADE. TECHNOLOGIST: SAYRA GARCIA
--- NOTE | 2024-06-30 09:46 | RAD REPORT ---
EXAMINATION: ONE VIEW CHEST XR CLINICAL INDICATION: Male, 53 years old.,dyspnea, tachypnea TECHNIQUE: Frontal chest projection is submitted. Examination is limited by patient positioning and t echnique. COMPARISON: 06/27/2024 FINDINGS: Central interstitial prominence, more pronounced than on prior exam. Left retrocardiac airspace opaci fication, could reflect atelectasis and/or small effusion. Pneumonia cannot be entirely excluded. No pneumothorax or right-sided effusion. Marked cardiomegaly. Mediastinal contours are otherwise unre markable. IMPRESSION: Progressive central congestive changes and/or pulmonary edema. Progressive retrocardiac opacification , may reflect atelectasis with or without an effusion, although superimposed pneumonia cannot be entirely excluded.
[2024-06-30] MEDS ORDERED: LORAZEPAM 0.5 MG TABLET PO PRN (09:56)
--- NOTE | 2024-06-30 09:56 | P.PN ---
Date of Service: 06/30/24 Subjective: Converted to normal sinus rhythm overnight at around 2030 Sodium improved to around 130 Rested well last night Denies complaints this morning ROS: 10 point ROS as noted above, otherwise negative Physical exam GEN: Alert, oriented, NAD HEENT: Normal conjunctiva, sclera anicteric CV: Regular rate/rhythm, NSR rate in the 80s, anasarca present Pulm: Tachypnea, mild dyspnea on nasal cannula at 3 L ABD: Soft, nontender, nondistended MSK: No joint tenderness Integumentary: No rashes Neuro: Normal speech, normal affect Vitals reviewed Assessment and Plan Acute hypoxic failure 2/2 COPD/CHF exacerbation New onset afib with rvr Hyponatremia 2/2 Fluid volume overload Elevated troponin Troponin trended flat/down Now in NSR after amiodarone we bolused yesterday/metoprolol initiated Cardiology consulted, echocardiogram pending Nephrology following for hyponatremia, improving Anticipate possible coronary angiogram later today Suspected pneumonia Chest x-ray with some mild worsening despite diuresis Unable to rule out pneumonia Will start on Rocephin/doxycycline given prolonged QTc previously Blood cultures no growth in 24 hours Afebrile, white blood cell count mildly elevated Urinary retention Shaw catheter placed with 1000ml urine returned HTN -continue home medications when appropriate Alcohol abuse Smoking abuse -Last alcoholic drink was at 2 pm 06/27 -librium q8h -ativan PRN -Cessation education provided -Tox screen pending Left foot wound -consult Dr. Dubon -Current patient of Dr. Dubon's DVT ppx Lovenox Full code LOS 2-3 days Discharge Plan: Home Plan to discharge in: 48 Hours Time Spent Managing Pts Care (In Minutes): 35
[2024-06-30] MEDS: DOXYCYCLINE 100 MG in NA CHLORIDE 0.9% 100 ML IVPB SCH (10:25)
[2024-06-30] MEDS: CEFTRIAXONE 1,000 MG in NA CHLORIDE 0.9% 50 ML IVPB SCH (10:25)
[2024-06-30] MEDS ORDERED: HEPARIN 10,000 UNIT/10 ML VIAL IV ONE (10:50)
[2024-06-30] MEDS ORDERED: LIDOCAINE 1% 20 ML MDV ONE (10:50)
[2024-06-30] MEDS ORDERED: MIDAZOLAM HCL 2 MG/2 ML INJ ONE (10:50)
[2024-06-30] MEDS ORDERED: HEPA 1000U/500MLS 2,000 UNIT/1,000 ML BAG IV ONE (10:50)
[2024-06-30] MEDS ORDERED: TICAGRELOR 90 MG TABLET PO ONE (10:51)
[2024-06-30] MEDS ORDERED: ASPIRIN 325 MG TAB ONE (10:51)
[2024-06-30] MEDS ORDERED: HEPARIN 5000 UNIT/ML 1 ML VIAL ONE (10:51)
[2024-06-30] MEDS ORDERED: CLOPIDOGREL 75 MG TABLET ONE (10:51)
[2024-06-30] MEDS ORDERED: ATROPINE SULF 1 MG/10 ML SYR IV ONE (10:51)
[2024-06-30] MEDS ORDERED: FENTANYL CITR 100 MCG/2 ML ONE (10:52)
[2024-06-30] MEDS: AMIODARONE HCL 900 MG in Dextrose 5%-Water 482 ML IV SCH (11:00)
[2024-06-30] MEDS ORDERED: NA CHLORIDE 0.9% 500 ML ONE (11:35)
[2024-06-30] MEDS ORDERED: FLUMAZENIL 0.1 MG/ML (5 mL VIAL) IV ONE (11:51)
[2024-06-30] MEDS ORDERED: NALOXONE 0.4 MG/ML VIAL ONE (11:51)
--- NOTE | 2024-06-30 12:18 | P.PN ---
Subjective Date of Service: 06/30/24 Chief Complaint: Acute hypoxic respiratory failure secondary to COPD exacerbation Subjective: No new changes, No C/O voiced, Tolerating diet, Ambulating, Improving Review of Systems 10-point ROS is otherwise unremarkable Physical Examination - Vital Signs Temperature: 97.8 F Blood Pressure: 130/82 Pulse: 74 Respirations: 21 Pulse Ox (%): 96 - Physical Exam General: Alert, In no apparent distress HEENT: Atraumatic, PERRLA, EOMI Neck: Supple, JVD not distended Respiratory: Clear to auscultation bilaterally, Normal air movement Cardiovascular: Regular rate/rhythm, Normal S1 S2 Gastrointestinal: Normal bowel sounds, No tenderness Musculoskeletal: No tenderness Integumentary: No rashes Neurological: Normal speech, Normal tone, Normal affect Lymphatics: No axilla or inguinal lymphadenopathy - Studies Medications List Reviewed: Yes Assessment And Plan - Current Problems (Diagnosis) (1) Atrial fibrillation Current Visit: Yes Status: Acute Plan: Patient converted to sinus rhythm switch amiodarone to 200 mg po BID start Eliquis 5 mg po BID continue metoprolol 100 mg po BID (2) NSTEMI (non-ST elevated myocardial infarction) Current Visit: Yes Status: Acute Plan: Coronary angiogram done today and shows normal coronaries. continue ASA. (3) SOB (shortness of breath) Current Visit: Yes Status: Acute Plan: Echo shows mild reduced LV systolic function with diastolic dysfunction. continue Lasix 40 mg IV BID for one more day then switch to lasix 40 mg daily add aldactone 25 mg daily Monitor input and output and electrolytes.
[2024-06-30] MEDS: AMIODARONE HCL 200 MG TAB PO SCH (12:32)
[2024-06-30] MEDS: chlordiazePOXIDE HCl 25 MG CAP PO SCH (13:12)
--- NOTE | 2024-06-30 21:32 | RAD REPORT ---
EXAM: CT brain without contrast HISTORY: Alteration of consciousness. COMPARISON: None TECHNIQUE: Multiple contiguous axial images were obtained and a CT of the brain without contrast.. Sagittal and coronal reconstruction performed. Automated exposure control, adjustment of the mA and/or kV according to patient size, and/or iterative reconstruction. Unless otherwise specified, incidental f indings do not require dedicated imaging follow-up FINDINGS: Cerebellar tonsillar ectopia is present. An intracranial bleed is not seen Mild prominence of ventricles No extra-axial fluid collection noted No significant hypodensity within the brain No fluid within the visualized sinuses or mastoids noted. IMPRESSION: Mild prominence of the ventricles may be a normal finding for the patient. Normal pressure hydrocepha charly can also have this appearance. This should be correlated clinically. If the patient continues to have symptoms to suggest an acute intracranial abnormality then MRI of th e brain would be recommended.
[2024-06-30] MEDS: APIXABAN 5 MG TABLET PO SCH (21:58)
--- NOTE | 2024-06-30 22:00 | PN ---
Date of Progress Note: 06/30/2024 Subjective: The patient was admitted with [id number] [place], CHF with exacerbation. The patient h ad severe hyponatremia secondary to beer potomania/dilutional secondary to cardiorenal. The patient was started on aggressive diuresis. Sodium is gradually trending up. The patient is status post car diac cath today. Physical Examination: Vital Signs: Blood pressure 147/82, pulse of 79. The patient had good urine output of 4100, negativ e of 2400. Chest: Crackles, bilateral. Heart: S1, S2. Systolic murmur. Abdomen: Soft, nontender. Extremities: +1 edema. Neurologic: Alert. No focality. Laboratory Data: WBC 11.7, hemoglobin 14.1, sodium 130, potassium 4, bicarb 39, BUN 16, creatinine 0 .7, calcium 8.5, phosphorus 3.7, magnesium 2.3, albumin 2.2. Cortisol stimulation test is still pend ing. Current Medications: The patient on include aspirin, ceftriaxone, doxycycline, amiodarone, metoprolo l, lorazepam, Lasix 40 b.i.d. Assessment And Plan: 1. Hyponatremia secondary to dilutional, superimposed with beer potomania, on the recovery, still on the overvolume side. I am going to continue diuresis. We will consider switching to oral tomorrow a nd we will follow up. 2. Followup cortisol stimulation test. 3. Hypertension, controlled, optimal. Continue to utilize the blood pressure for more diuresis. 4. Congestive heart failure with congestive heart failure exacerbation. Continue diuresis as above. MITA/SRAVANI Voice ID: [id number] Report ID: [id number]
[2024-06-30 22:20] LABS: Arterial Blood Carboxyhemoglob 1.2 % (0-1.5); Blood Gas Oxyhemoglobin 87.8 % (94-97); Blood Gas THB 14.9 g/dl (12-18); Blood O2 Saturation 90.4 % (92-98.5)
[2024-07-01 04:34] LABS: Absolute Lymphocytes (CBC) 1.1 K/uL (0.7-4.9); Absolute Monocytes 2.1 K/uL (0.1-1.3); Absolute Neutrophil 8.2 K/uL (1.8-8.0); Basophils % 0.4 % (0-1.3); Eosinophils % 0.1 % (0-4.4); Hematocrit 40.7 % (39.6-49.0); Hemoglobin 13.7 g/dL (13.6-17.9); Lymphocytes % 9.9 % (15.3-44.8); MCH 30.7 pg (27.0-35.0); MCHC 33.6 g/dL (32.0-36.0); MCV 91.4 fL (80-100); MPV 10.1 fL (7.6-11.3); Monocytes % 18.1 % (3.3-12.3); Neutrophils % 71.5 % (41.7-73.7); Nucleated Red Blood Cells % 0.1 % (0-0); Platelets 357 thou/uL (152-406); RBC Red Blood Cell Count 4.45 M/uL (4.33-5.43)
[2024-07-01 05:16] LABS: Albumin 2.2 g/dL (3.4-5.0); Anion Gap 6.2 mEq/L (5.0-15.0); Magnesium 2.1 mg/dL (1.6-2.4); Potassium 4.2 mEq/L (3.5-5.1)
[2024-07-01 05:31] LABS: Blood Morphology Comment NOT SEEN (NOT SEEN); Platelet Estimate ADEQ; White Blood Cell Scan OK (OK)
[2024-07-01] MEDS ORDERED: chlordiazePOXIDE HCl 25 MG CAP PO PRN (06:02)
--- NOTE | 2024-07-01 12:15 | RAD REPORT ---
EXAMINATION: MRI BRAIN WITHOUT AND WITH CONTRAST CLINICAL INDICATION: Facial numbness and weakness. Lethargy TECHNIQUE: Multiplanar multisequence MR images of the brain were obtained without and with intravenous contrast. 22 cc Magnevist administered intravenously. COMPARISON: Head CT June 30, 2024 Mild abnormal signal within periventricular, deep and subcortical white matter probably ischemic burns ges secondary to small vessel disease Diffusion weighted/ADC mapping images do not reveal evidence of an acute infarction No abnormal enhancement within the brain visualized. Mild prominence of ventricles Cerebellar tonsillar ectopia No extra-axial fluid collection No fluid within the visualized sinuses/mastoids. Mild mucoperiosteal thickening involves the sinuses IMPRESSION: Cerebellar tonsillar ectopia Mild prominence of the ventricles probably the sequela of cerebral atrophy. Normal pressure hydroceph alus is considered less likely and should be correlated clinically.
--- NOTE | 2024-07-01 12:27 | RAD REPORT ---
EXAM:MRA Neck W/Wo Cont CLINICAL HISTORY: Facial weakness/numbness. Lethargy TECHNIQUE: An MRA of the neck was performed with 20 cc MultiHance administered intravenously. Contrast using 2-D [id number] imaging. Postcontrast images were also performed using 2-D [id number] imaging. 3-D rotational reformats were performed. COMPARISON: None FINDINGS: The aortic arch and great vessels appear unremarkable. Mild plaque within the common carotid, internal and external carotid arteries bilaterally. Mild stenosis proximal right vertebral artery. The vertebral arteries are otherwise unremarkable. No dissection seen. IMPRESSION: No significant vascular abnormality is displayed.
--- NOTE | 2024-07-01 12:27 | RAD REPORT ---
EXAM: MRA Head Wo Cont CLINICAL INDICATION: Facial weakness/numbness. Lethargy. TECHNIQUE: 3D [id number] MRA of the head with MIPs. Time-resolved multiphasic pre-contrast and po st-contrast volumetric T1-w arterial phase images of the head with maximum intensity projections (MIPs) of subtracted dataset. Intravenous contrast material was administered for the examination. COMPARISON: None. FINDINGS: Questionable 3 mm filling defect proximal A2 segment right anterior cerebral artery. The remainder of the anterior cerebral, middle cerebral, basilar and internal carotid arteries appear unremarkable No aneurysm seen. IMPRESSION: Questionable 3 mm filling defect A2 segment right anterior cerebral artery.. CT angiogram head may be helpful for further evaluation.
--- NOTE | 2024-07-01 13:05 | P.PN ---
Subjective Date of Service: 07/01/24 Chief Complaint: Acute hypoxic respiratory failure secondary to COPD exacerbation Subjective: No new changes, No C/O voiced, Tolerating diet, Ambulating, Improving Review of Systems 10-point ROS is otherwise unremarkable Physical Examination - Vital Signs Temperature: 98.5 F Blood Pressure: 141/90 Pulse: 76 Respirations: 19 Pulse Ox (%): 95 - Physical Exam General: Alert, In no apparent distress HEENT: Atraumatic, PERRLA, EOMI Neck: Supple, JVD not distended Respiratory: Clear to auscultation bilaterally, Normal air movement Cardiovascular: Regular rate/rhythm, Normal S1 S2 Gastrointestinal: Normal bowel sounds, No tenderness Musculoskeletal: No tenderness Integumentary: No rashes Neurological: Normal speech, Normal tone, Normal affect Lymphatics: No axilla or inguinal lymphadenopathy - Studies Medications List Reviewed: Yes Assessment And Plan - Current Problems (Diagnosis) (1) Atrial fibrillation Current Visit: Yes Status: Acute Plan: Patient converted to sinus rhythm with medications continue amiodarone to 200 mg po BID continue Eliquis 5 mg po BID continue metoprolol 100 mg po BID (2) NSTEMI (non-ST elevated myocardial infarction) Current Visit: Yes Status: Acute Plan: Coronary angiogram done today and shows normal coronaries. continue ASA. (3) SOB (shortness of breath) Current Visit: Yes Status: Acute Plan: Echo shows mild reduced LV systolic function with diastolic dysfunction. continue Lasix 40 mg IV BID for one more day then switch to lasix 40 mg daily on discharge add aldactone 25 mg daily add Lisinopril 5 mg daily Monitor input and output and electrolytes.
--- NOTE | 2024-07-01 14:12 | P.PN ---
Date of Service: 07/01/24 Subjective: Drowsy overnight CT head negative MRI today shows no stroke more alert, NIH 0 ROS: 10 point ROS as noted above, otherwise negative Physical exam GEN: Alert, oriented, NAD HEENT: Normal conjunctiva, sclera anicteric CV: Regular rate/rhythm, NSR rate in the 80s, anasarca present Pulm: Tachypnea, mild dyspnea on nasal cannula at 3 L ABD: Soft, nontender, nondistended MSK: No joint tenderness Integumentary: No rashes Neuro: Normal speech, normal affect Vitals reviewed Assessment and Plan Acute hypoxic failure 2/2 COPD/CHF exacerbation New onset afib with rvr Hyponatremia 2/2 Fluid volume overload Elevated troponin Troponin trended flat/down Now in NSR on PO amio and metoprolol, eliquis Cardiology consulted, echocardiogram shows EF ~40% Nephrology following for hyponatremia, improving LHC shows normal coronaries MRI brain negative for CVA PT consult, move to floor Suspected pneumonia Chest x-ray with some mild worsening despite diuresis Unable to rule out pneumonia Started on Rocephin/doxycycline 06/30 given prolonged QTc previously Blood cultures no growth in 24 hours Afebrile, white blood cell count mildly elevated Pulmonary consult Urinary retention Shaw catheter placed with 1000ml urine returned HTN -continue home medications when appropriate Alcohol abuse Smoking abuse -Last alcoholic drink was at 2 pm 06/27 -PRN librium -Cessation education provided -Tox screen pending Left foot wound -consult Dr. Dubon -Current patient of Dr. Dubon's DVT ppx Lovenox Full code LOS 2-3 days Discharge Plan: Home Plan to discharge in: 48 Hours Time Spent Managing Pts Care (In Minutes): 35
[2024-07-01 17:15] VITALS: BMI 35.7
[2024-07-01] MEDS: ARFORMOTEROL TARTRATE 15 MCG/2 ML VIAL.NEB NEB SCH (19:32)
--- NOTE | 2024-07-01 23:46 | PN ---
Date of Progress Note: 07/01/2024 Subjective: The patient is admitted to ICU for CHF exacerbation. He was found to have non-ST elevat ion acute myocardial infarction. The patient had severe hyponatremia secondary to beer potomania dil utional and secondary to cardiorenal syndrome. The patient was started on aggressive diuresis. Sodi um level gradually trending up. The patient had cardiac catheterization yesterday and received IV co ntrast for cardiac catheterization. Review of Systems: Denies chest pain, palpitation. Physical Examination: Lungs: Crackles bilaterally at bases. Heart: S1, S2. 2/6 systolic murmur at left lower sternal border. Abdomen: Soft, benign, nontender. Extremities: 1+ edema in both feet. Impression And Plan: 1. Hyponatremia, severe secondary to dilutional and superimposed with beer potomania. Sodium level i s gradually improving. Continue diuretics for fluid overload and congestive heart failure. Continue Lasix. Avoid HCTZ. Check cortisol level. 2. Hypertension, controlled, optimal. Avoid HCTZ. 3. Congestive heart failure with exacerbation. Continue aggressive diuretic therapy and continue low sodium diet. P.o. fluid restriction. EB/MODL Voice ID: [id number] Report ID: [id number]
--- NOTE | 2024-07-02 00:51 | OP ---
Date of Procedure: 06/30/2024 Surgeon: Gustavo Lee Procedures Performed: 1. Left heart catheterization. 2. Selective coronary angiogram. Indication For Procedure: Zju-CZ-cydrglyby ND with a drop in heart function. Complications: None. Estimated Blood Loss: Less than 50 cc. Access: Right radial, closed by TR band. Sedation Time: 20 minutes with 1 of Versed and 25 fentanyl. Description Of Procedure: After risks, benefits, and alternatives were explained to the patient, the patient agreed to proceed with the procedure and signed informed consent. The patient was brought b [facility] to the phlebotomy lab assistant, prepped and draped in sterile fashion. Time-out was performed. Sedation was ad ministered. Next, the right radial access was obtained using ultrasound-guided micropuncture technPlan B Acqusitions ue. [place] 4 catheter was advanced over J-wire to the LV cavity. LVEDP was obtained. Pullback did n ot show any gradient. Same catheter was used for selective angiogram of the left and right coronary systems. At the end of procedure, catheter was removed over a J-wire. Sheath was removed. TR band was applied. Hemostasis was achieved. The patient was moved back to the recovery room in stable con dition. Findings: 1. Left main normal. 2. LAD with mild luminal irregularities. 3. Left circumflex, mild luminal irregularities. 4. RCA, mild luminal irregularities. 5. LVEDP 20 mmHg. Assessment And Plan: 1. Mild nonobstructive coronary artery disease. 2. Elevated filling pressure. Plan will be to continue medical management. VICKIE/SRAVANI Voice ID: [id number] Report ID: [id number]
[2024-07-02 06:38] LABS: Absolute Basophils 0.1 K/uL (0-0.5); Absolute Lymphocytes (CBC) 1.1 K/uL (0.7-4.9); Absolute Monocytes 2.1 K/uL (0.1-1.3); Absolute Neutrophil 7.4 K/uL (1.8-8.0); Basophils % 0.6 % (0-1.3); Eosinophils % 0.4 % (0-4.4); Hematocrit 40.2 % (39.6-49.0); Hemoglobin 13.1 g/dL (13.6-17.9); Lymphocytes % 10.7 % (15.3-44.8); MCH 30.4 pg (27.0-35.0); MCHC 32.6 g/dL (32.0-36.0); MCV 93.2 fL (80-100); MPV 9.7 fL (7.6-11.3); Monocytes % 19.2 % (3.3-12.3); Neutrophils % 69.1 % (41.7-73.7); Nucleated Red Blood Cells % 0.2 % (0-0); Platelets 392 thou/uL (152-406); RBC Red Blood Cell Count 4.31 M/uL (4.33-5.43); Red Cell Distribution Width 15.9 % (12.1-15.2)
[2024-07-02 07:18] LABS: Albumin 2.2 g/dL (3.4-5.0); Anion Gap 5.6 mEq/L (5.0-15.0); BUN Blood Urea Nitrogen 9 mg/dL (7-18); Glomerular Filtration Rate 107 ml/min (=/>90); Glucose Level 116 mg/dL (74-106); Magnesium 1.9 mg/dL (1.6-2.4); Phosphorus 3.2 mg/dL (2.5-4.9); Potassium 3.6 mEq/L (3.5-5.1); Sodium Level 134 mEq/L (136-145)
[2024-07-02 07:19] LABS: Bicarbonate > 45 mEq/L (21-32)
[2024-07-02 08:25] LABS: Atypical Lymphocytes 2 %; Blood Morphology Comment NOT SEEN (NOT SEEN); Differential Total Cells Count 100; Eosinophils 1 % (0-3); Lymphocytes 11 % (15-42); Monocytes 23 % (0-10); Platelet Estimate ADEQ; Segmented Neutrophils 63 % (40-80)
[2024-07-02] MEDS: [UNRECOGNIZED DRUG - OTHER] IH SCH (09:00)
[2024-07-02] MEDS ORDERED: HOME MED 1 EA UNK IH SCH (09:00)
[2024-07-02] MEDS ORDERED: [UNRECOGNIZED DRUG - OTHER] IH SCH (09:00)
[2024-07-02] MEDS: SPIRONOLACTONE 25 MG TABLET PO SCH (10:00)
[2024-07-02] MEDS: POTASSIUM CL SA 10 MEQ TAB PO ONE (10:00)
[2024-07-02] MEDS: lisinopriL 5 MG TAB PO SCH (10:00)
--- NOTE | 2024-07-02 15:20 | P.PN ---
Date of Service: 07/02/24 Subjective: Drowsy overnight CT head negative MRI today shows no stroke more alert, NIH 0 Downgraded from ICU continues to slowly improve ROS: 10 point ROS as noted above, otherwise negative Physical exam GEN: Alert, oriented, NAD HEENT: Normal conjunctiva, sclera anicteric CV: Regular rate/rhythm, NSR rate in the 80s, anasarca present Pulm: Tachypnea, mild dyspnea on nasal cannula at 3 L ABD: Soft, nontender, nondistended MSK: No joint tenderness Integumentary: No rashes Neuro: Normal speech, normal affect Vitals reviewed Assessment and Plan Acute hypoxic failure 2/2 COPD/CHF exacerbation New onset afib with rvr Hyponatremia 2/2 Fluid volume overload Elevated troponin Troponin trended flat/down Now in NSR on PO amio and metoprolol, eliquis Cardiology consulted, echocardiogram shows EF ~40% Nephrology following for hyponatremia, improving LHC shows normal coronaries MRI brain negative for CVA PT consult, move to floor Suspected pneumonia Chest x-ray with some mild worsening despite diuresis Unable to rule out pneumonia Started on Rocephin/doxycycline 06/30 given prolonged QTc previously Blood cultures no growth in 24 hours Afebrile, white blood cell count mildly elevated Pulmonary consult MRSA + sputum, on doxy Urinary retention Sahw catheter placed with 1000ml urine returned HTN -continue home medications when appropriate Alcohol abuse Smoking abuse -Last alcoholic drink was at 2 pm 06/27 -PRN librium -Cessation education provided -Tox screen pending Left foot wound -consult Dr. Dubon -Current patient of Dr. Dubon's DVT ppx Lovenox Full code LOS 2-3 days Discharge Plan: Home Plan to discharge in: 48 Hours Time Spent Managing Pts Care (In Minutes): 35
[2024-07-02 18:33] LABS: Blood Gas Oxyhemoglobin 88.1 % (94-97); Blood O2 Saturation 90.9 % (92-98.5)
[2024-07-02 18:36] LABS: Arterial Blood Carboxyhemoglob 1.4 % (0-1.5)
[2024-07-02 18:38] LABS: Blood Gas THB 13.9 g/dl (12-18)
--- NOTE | 2024-07-02 22:27 | PN ---
Subjective: The patient is slightly confused. The patient remains to be tachypneic. Bicarbonate 35 . We will order ABG. Lasix reduced. Objective: Vital Signs: Temperature 97.9, pulse rate 73, blood pressure 120/70, respiratory rate __ . General: Awake, alert, in distress. Neck: Supple. No elevated JVD. Heart: Regular rate and rhythm. Normal S1, S2. Chest: Tachypneic, decreased air entry. Abdomen: Soft, nontender. Extremities: No edema. Laboratory Data: White count 10.7, hemoglobin 13. Sodium 134, bicarbonate more than 45. Assessment And Plan: 1. High bicarbonate and thus, ABG showed respiratory acidosis. Could have underlying metabolic alkal osis Lasix reduced. We will order ABG. If ABG shows respiratory acidosis, the re is no role for Diamox. 2. Severe respiratory acidosis. Continue oxygen on BiPAP and inhalers as tolerated. 3. Mild hyponatremia, stable. Continue to monitor. Diet as tolerated. 4. Congestive heart failure. Continue diuretic. Lasix reduced. Thanks for allowing me to participate in patient care. Total time spent 55 minute including document ation, reviewing labs. The patient overall has guarded prognosis. REINALDO/SRAVANI Voice ID: [id number] Report ID: [id number]
[2024-07-03 04:29] LABS: Absolute Eosinophils 0.2 K/uL (0-0.5); Absolute Monocytes 2.1 K/uL (0.1-1.3); Absolute Neutrophil 8.3 K/uL (1.8-8.0); Basophils % 0.2 % (0-1.3); Eosinophils % 1.3 % (0-4.4); Hematocrit 38.3 % (39.6-49.0); Hemoglobin 12.7 g/dL (13.6-17.9); Lymphocytes % 8.8 % (15.3-44.8); MCH 30.5 pg (27.0-35.0); MCHC 33.1 g/dL (32.0-36.0); MCV 92.1 fL (80-100); MPV 9.2 fL (7.6-11.3); Monocytes % 18.2 % (3.3-12.3); Neutrophils % 71.5 % (41.7-73.7); Nucleated Red Blood Cells % 0.1 % (0-0); Platelets 357 thou/uL (152-406); RBC Red Blood Cell Count 4.16 M/uL (4.33-5.43); Red Cell Distribution Width 15.8 % (12.1-15.2)
[2024-07-03 05:12] LABS: Albumin 2.1 g/dL (3.4-5.0); Anion Gap 5.7 mEq/L (5.0-15.0); BUN Blood Urea Nitrogen 10 mg/dL (7-18); Glomerular Filtration Rate 107 ml/min (=/>90); Glucose Level 104 mg/dL (74-106); Magnesium 2.1 mg/dL (1.6-2.4); Phosphorus 3.4 mg/dL (2.5-4.9); Potassium 3.7 mEq/L (3.5-5.1); Sodium Level 136 mEq/L (136-145)
[2024-07-03 05:23] LABS: Bicarbonate > 45 mEq/L (21-32)
--- NOTE | 2024-07-03 08:53 | RAD REPORT ---
EXAM: Chest Single View HISTORY: f/u pulm edema, s/p diuresis, hypercap COMPARISON: 06/30/2024 FINDINGS: LUNGS/PLEURA: Diffuse prominence of the pulmonary interstitium. Small left pleural effusion. MEDIASTINUM: The mediastinal silhouette is within normal limits. CARDIAC: Cardiomegaly. UPPER ABDOMEN: No significant abnormality. BONES: No acute abnormality. LINES/TUBES/OTHER: N/A IMPRESSION: Pulmonary edema with small left pleural effusion similar to 06/30/2024.
[2024-07-03] MEDS: POTASSIUM CL SA 10 MEQ TAB PO ONE (10:00)
[2024-07-03] MEDS: FUROSEMIDE 40 MG TABLET PO SCH (10:01)
--- NOTE | 2024-07-03 10:21 | P.CNS ---
Date of Consult: 07/03/24 Reason for Consult: wound left heel Chief Complaint: Acute hypoxic respiratory failure secondary to COPD exacerbation Allergies No Known Allergies Allergy (Unverified 06/28/24 07:29) Home Medications: Cholecalciferol (Vitamin D3) [Vitamin D 2,000 Unit Tab] 5,000 unit PO DAILY 12/18/14 Simvastatin [Zocor] 10 mg PO BEDTIME 12/18/14 Cetirizine HCl [All Day Allergy Relief] 10 mg PO DAILY 06/27/24 Fluticasone Propion/Salmeterol [Wixela 100-50 Inhub] 1 puff PO BID 06/27/24 Folic Acid 2 mg PO DAILY 06/27/24 Hydralazine [Apresoline*] 25 mg PO BID 06/27/24 Metoprolol Tartrate [Lopressor*] 50 mg PO BID 06/27/24 Montelukast Sodium [Singulair] 10 mg PO DAILY 06/27/24 - Past Medical/Surgical History Diabetic: No -: HTN -: COPD -: High cholesterol -: RA -: L Leg surgery -: gastric bypass - Family History Father Medical History: Heart disease - Social History Smoking Status: Former smoker Alcohol use: Yes CD- Drugs: No Caffeine use: Yes Place of Residence: Home Review of Systems 10-point ROS is otherwise unremarkable Physical Examination Temp Pulse Resp BP Pulse Ox 97.4 F 81 18 110/52 L 98 07/03/24 04:00 07/03/24 10:02 07/03/24 04:00 07/03/24 10:02 07/03/24 05:00 General: Alert, In no apparent distress, Oriented x3 Cardiovascular: No edema, Normal pulses Capillary refill: <2 Seconds Musculoskeletal: No clubbing, No swelling, No contractures, No erythema, No tenderness, No warmth Integumentary: Other (ulceration left posterior heel with granular base measuring 0.5cmX0.2cmX0.2cm, no purulence, no signs of infection) Neurological: Sensation intact - Problems (1) Non-pressure chronic ulcer of left heel and midfoot with fat layer exposed Current Visit: Yes Status: Acute Conclusions/Impression: Medihoney to left heel wound daily. Follow up outpatient
--- NOTE | 2024-07-03 12:01 | P.PN ---
Subjective Date of Service: 07/03/24 Chief Complaint: Acute hypoxic respiratory failure secondary to COPD exacerbation Subjective: Improving (Is improving doing well at the bedside patient has a history of COPD was prescribed bronchodilators as may not be compliant) Review of Systems General: Weakness Respiratory: Shortness of Breath Physical Examination - Vital Signs Temperature: 98.0 F Blood Pressure: 110/52 Pulse: 81 Respirations: 23 Pulse Ox (%): 93 - Physical Exam General: Alert, Oriented x3 Respiratory: Clear to auscultation bilaterally, Diminished Cardiovascular: No edema, Regular rate/rhythm, Normal S1 S2 - Studies Microbiology Data (last 24 hrs): 06/27/24 15:22 Blood - Blood Aerobic Blood Culture - Final No growth in 5 days. 06/27/24 15:22 Blood - Blood Anaerobic Blood Culture - Final No growth in 5 days. 06/27/24 14:58 Blood - Blood Aerobic Blood Culture - Final No growth in 5 days. 06/27/24 14:58 Blood - Blood Anaerobic Blood Culture - Final No growth in 5 days. Medications List Reviewed: Yes Assessment And Plan - Current Problems (Diagnosis) (1) Chronic respiratory failure Current Visit: Yes Status: Acute Plan: Is 54 years of age admitted with hypoxic hypercapnic respiratory failure patient's bicarbonate is elevated I suspect he has chronic hypercapnic hypoxic respiratory failure from his underlying COPD is an active smoker plan to continue with bronchodilators add Dulera will benefit from a noninvasive ventilator BiPAP is not suitable is a ventilator hopefully will prevent from him having admissions to the hospital patient's thyroid function test is normal add Diamox to Lasix cardiogram reviewed with chemistries all reviewed Qualifiers: Respiratory failure complication: hypoxia and hypercapnia Qualified Code(s): J96.11 - Chronic respiratory failure with hypoxia; J96.12 - Chronic respiratory failure with hypercapnia
--- NOTE | 2024-07-03 15:25 | P.PN ---
Date of Service: 07/03/24 Subjective: More alert today, speech more clear today Tolerating diet Steadily improving ROS: 10 point ROS as noted above, otherwise negative Physical exam GEN: Alert, oriented, NAD HEENT: Normal conjunctiva, sclera anicteric CV: Regular rate/rhythm, NSR rate in the 80s, anasarca present Pulm: Tachypnea, mild dyspnea on nasal cannula at 3 L ABD: Soft, nontender, nondistended MSK: No joint tenderness Integumentary: No rashes Neuro: Normal speech, normal affect Vitals reviewed Assessment and Plan Acute hypoxic failure 2/2 COPD/CHF exacerbation New onset afib with rvr Hyponatremia 2/2 Fluid volume overload Elevated troponin Troponin trended flat/down Now in NSR on PO amio and metoprolol, eliquis Also started on spironolactone, lisinopril Cardiology consulted, echocardiogram shows EF ~40% Nephrology following for hyponatremia, improving LHC shows normal coronaries MRI brain negative for CVA PT consult, move to floor Suspected pneumonia Chest x-ray with some mild worsening despite diuresis Unable to rule out pneumonia Started on Rocephin/doxycycline 06/30 given prolonged QTc previously Blood cultures no growth in 24 hours Afebrile, white blood cell count mildly elevated Pulmonary consult MRSA + sputum, on doxy Likely to benefit with home NIV, home O2 which is being arranged Urinary retention Shaw catheter placed with 1000ml urine returned Voiding trial in the next 1 to 2 days HTN -continue home medications when appropriate Alcohol abuse Smoking abuse -Last alcoholic drink was at 2 pm 06/27 -PRN librium -Cessation education provided -Tox screen pending Left foot wound -consult Dr. Dubon -Current patient of Dr. Dubon's Podiatry recommends Medihoney DVT ppx Lovenox Full code LOS 2-3 days Discharge Plan: Home Plan to discharge in: 48 Hours Time Spent Managing Pts Care (In Minutes): 35
[2024-07-03] MEDS: MEDIHONEY 44 ML TOPICAL TUBE TOP SCH (18:42)
[2024-07-03] MEDS: DULERA 200/5 (MOMETASONE/FORMOTEROL) INHALER IH SCH (18:42)
[2024-07-03] MEDS: acetaZOLAMIDE 250 MG TAB PO SCH (18:43)
[2024-07-03] MEDS: DOXYCYCLINE 100 MG CAP PO SCH (21:48)
[2024-07-03] MEDS ORDERED: BISACODYL 10 MG RECTAL SUPP PR PRN (22:05)
[2024-07-03] MEDS ORDERED: POLYETHYL GLY 3350 17 GM/DOSE PO PRN (22:05)
[2024-07-04 07:23] LABS: Absolute Basophils 0.2 K/uL (0-0.5); Absolute Eosinophils 0.3 K/uL (0-0.5); Absolute Lymphocytes (CBC) 0.6 K/uL (0.7-4.9); Absolute Neutrophil 8.1 K/uL (1.8-8.0); Basophils % 1.4 % (0-1.3); Eosinophils % 2.3 % (0-4.4); Hematocrit 38.6 % (39.6-49.0); Hemoglobin 12.6 g/dL (13.6-17.9); Lymphocytes % 5.7 % (15.3-44.8); MCH 30.3 pg (27.0-35.0); MCHC 32.6 g/dL (32.0-36.0); MCV 93.1 fL (80-100); MPV 9.5 fL (7.6-11.3); Monocytes % 18.2 % (3.3-12.3); Neutrophils % 72.4 % (41.7-73.7); Nucleated Red Blood Cells % 0.1 % (0-0); Platelets 385 thou/uL (152-406); RBC Red Blood Cell Count 4.15 M/uL (4.33-5.43); Red Cell Distribution Width 15.7 % (12.1-15.2)
[2024-07-04 07:52] LABS: Anion Gap 5.4 mEq/L (5.0-15.0); Magnesium 2.3 mg/dL (1.6-2.4); Potassium 3.4 mEq/L (3.5-5.1)
--- NOTE | 2024-07-04 08:47 | P.PN ---
Subjective Date of Service: 07/04/24 Chief Complaint: Acute hypoxic respiratory failure secondary to COPD exacerbation Subjective: No new changes, No C/O voiced, Tolerating diet, Ambulating, Improving Review of Systems 10-point ROS is otherwise unremarkable Physical Examination - Vital Signs Temperature: 97.4 F Blood Pressure: 114/56 Pulse: 86 Respirations: 16 Pulse Ox (%): 93 - Physical Exam General: Alert, In no apparent distress HEENT: Atraumatic, PERRLA, EOMI Neck: Supple, JVD not distended Respiratory: Clear to auscultation bilaterally, Normal air movement Cardiovascular: Regular rate/rhythm, Normal S1 S2 Gastrointestinal: Normal bowel sounds, No tenderness Musculoskeletal: No tenderness Integumentary: No rashes Neurological: Normal speech, Normal tone, Normal affect Lymphatics: No axilla or inguinal lymphadenopathy - Studies Medications List Reviewed: Yes Assessment And Plan - Current Problems (Diagnosis) (1) Atrial fibrillation Current Visit: Yes Status: Acute Plan: Patient converted to sinus rhythm with medications lower amiodarone to 200 mg po daily continue Eliquis 5 mg po BID continue metoprolol 100 mg po BID (2) NSTEMI (non-ST elevated myocardial infarction) Current Visit: Yes Status: Acute Plan: Coronary angiogram done today and shows normal coronaries. continue ASA. (3) SOB (shortness of breath) Current Visit: Yes Status: Acute Plan: Echo shows mild reduced LV systolic function with diastolic dysfunction. continue Diamox per nephrology team aldactone 50 mg daily Lisinopril 5 mg daily Monitor input and output and electrolytes.
[2024-07-04] MEDS: POLYETHYL GLY 3350 17 GM/DOSE PO ONE (10:43)
[2024-07-04] MEDS: POTASSIUM CL SA 10 MEQ TAB PO ONE (10:45)
[2024-07-04] MEDS: DOCUSATE NA 100 MG CAP PO SCH (10:46)
--- NOTE | 2024-07-04 12:26 | P.PN ---
Date of Service: 07/04/24 Subjective: Improving, monitoring sats/bicarb Tolerating Bipap at night and NC during the day ROS: 10 point ROS as noted above, otherwise negative Physical exam GEN: Alert, oriented, NAD HEENT: Normal conjunctiva, sclera anicteric CV: Regular rate/rhythm, NSR rate in the 80s, anasarca present Pulm: Tachypnea, mild dyspnea on nasal cannula at 3 L ABD: Soft, nontender, nondistended MSK: No joint tenderness Integumentary: No rashes Neuro: Normal speech, normal affect Vitals reviewed Assessment and Plan Acute hypoxic failure 2/2 COPD/CHF exacerbation New onset afib with rvr Hyponatremia 2/2 Fluid volume overload Elevated troponin Troponin trended flat/down Now in NSR on PO amio and metoprolol, eliquis Amio reduced to 200mg once daily 2/3 Also started on spironolactone, lisinopril Cardiology consulted, echocardiogram shows EF ~40% Nephrology following for hyponatremia, improving LHC shows normal coronaries MRI brain negative for CVA PT consult, move to floor Suspected pneumonia Chest x-ray with some mild worsening despite diuresis Unable to rule out pneumonia Started on Rocephin/doxycycline 06/30 given prolonged QTc previously Blood cultures no growth in 24 hours Afebrile, white blood cell count mildly elevated Pulmonary consult MRSA + sputum, on doxy/rocephin Likely to benefit with home NIV, home O2 which pulm is working on arranging Urinary retention Shaw catheter placed with 1000ml urine returned Voiding trial in the next 1 to 2 days HTN -continue home medications when appropriate Alcohol abuse Smoking abuse -Last alcoholic drink was at 2 pm 06/27 -PRN librium -Cessation education provided -Tox screen pending Left foot wound -consult Dr. Dubon -Current patient of Dr. Dubon's Podiatry recommends Medihoney DVT ppx Lovenox Full code LOS 2-3 days Discharge Plan: Home Plan to discharge in: 48 Hours Time Spent Managing Pts Care (In Minutes): 35
[2024-07-04] MEDS: IPRATROPIUM BROM 0.5MG/2.5ML ONE (20:35)
[2024-07-04] MEDS: ARFORMOTEROL TARTRATE 15 MCG/2 ML VIAL.NEB ONE (20:50)
[2024-07-05 05:35] LABS: Hematocrit 36.6 % (39.6-49.0); Hemoglobin 12.1 g/dL (13.6-17.9); MCH 30.4 pg (27.0-35.0); MCHC 33.1 g/dL (32.0-36.0); MCV 91.9 fL (80-100); MPV 10.2 fL (7.6-11.3); Platelets 372 thou/uL (152-406); RBC Red Blood Cell Count 3.98 M/uL (4.33-5.43); Red Cell Distribution Width 16.2 % (12.1-15.2)
[2024-07-05 05:51] LABS: Anion Gap 5.9 mEq/L (5.0-15.0); Magnesium 2.4 mg/dL (1.6-2.4); Potassium 3.9 mEq/L (3.5-5.1)
[2024-07-05] MEDS: AMIODARONE HCL 200 MG TAB PO SCH (09:02)
--- NOTE | 2024-07-05 12:37 | EKG ---
Test Date: 2024-06-29 Test Time: 21:08:54 Personal Care Attendant: MATILDA MEASUREMENT RESULTS: Intervals: Rate: 74 ND: 164 QRSD: 86 QT: 452 QTc: 501 [place]: P: 42 ND: 164 QRS: 73 T: 71 INTERPRETIVE STATEMENTS: Normal sinus rhythm Possible Left atrial enlargement Nonspecific ST and T wave abnormality Prolonged QT Abnormal ECG Compared to ECG 06/27/2024 22:24:33 ST (T wave) deviation now present Prolonged QT interval now present Atrial fibrillation no longer present Ventricular premature complex(es) no longer present Left anterior fascicular block no longer present Myocardial infarct finding no longer present Electronically Signed On 07-05-24 12:23:21 EMPLOYEE RELATIONS CONSULTANT by Gustavo Lee
--- NOTE | 2024-07-05 12:45 | EKG ---
Test Date: 2024-06-27 Test Time: 22:24:33 Grip Boss: RIZWAN MEASUREMENT RESULTS: Intervals: Rate: 145 NE: QRSD: 100 QT: 350 QTc: 543 [place]: P: NE: QRS: -46 T: 60 INTERPRETIVE STATEMENTS: Atrial fibrillation with rapid ventricular response with premature ventricular or aberrantly conducted complexes Low voltage QRS Left anterior fascicular block Cannot rule out Anterior infarct, age undetermined Abnormal ECG Compared to ECG 06/27/2024 14:28:34 Ventricular premature complex(es) now present Myocardial infarct finding now present Sinus rhythm no longer present ST (T wave) deviation no longer present Possible ischemia no longer present Prolonged QT interval no longer present Electronically Signed On 07-05-24 12:25:59 RN LPN CNA by Gustavo Lee
--- NOTE | 2024-07-05 12:47 | EKG ---
Test Date: 2024-06-27 Test Time: 14:28:34 Communications Manager: JEOVANY MEASUREMENT RESULTS: Intervals: Rate: 99 CT: 144 QRSD: 100 QT: 360 QTc: 462 [place]: P: 78 CT: 144 QRS: -66 T: 84 INTERPRETIVE STATEMENTS: Normal sinus rhythm Possible Left atrial enlargement Low voltage QRS Left anterior fascicular block ST & T wave abnormality, consider anterior ischemia Prolonged QT Abnormal ECG Compared to ECG 06/27/2024 14:27:49 Left anterior fascicular block now present ST (T wave) deviation now present Possible ischemia now present Left-axis deviation no longer present T-wave abnormality no longer present Electronically Signed On 07-05-24 12:26:39 GAMES DEALER by Gustavo Lee
--- NOTE | 2024-07-05 13:03 | P.PN ---
Date of Service: 07/05/24 Subjective: Sleeping comfortably Will need the NIV at home, CO2 better ROS: 10 point ROS as noted above, otherwise negative Physical exam GEN: Sleeping, NAD HEENT: Normal conjunctiva, sclera anicteric CV: RRR, S1 S2 present, anasarca present Pulm: Symmetrical chest wall movement, mild dyspnea, on 2 L NC ABD: Soft on palpation, ND/NT MSK: No joint tenderness Integumentary: No rashes Neuro: Normal speech, normal affect Vitals reviewed Assessment and Plan Acute hypoxic failure 2/2 COPD/CHF exacerbation New onset afib with rvr Hyponatremia 2/2 Fluid volume overload Elevated troponin -Troponin trended flat/down -Now in NSR on PO amio and metoprolol, eliquis -Amio reduced to 200mg once daily 07/04 -Also started on spironolactone, lisinopril -Cardiology consulted, echocardiogram shows EF ~40% -Nephrology following for hyponatremia, improving -LHC shows normal coronaries -MRI brain negative for CVA -PT consult, move to floor Suspected pneumonia -Chest x-ray with some mild worsening despite diuresis -Unable to rule out pneumonia -Started on Rocephin/doxycycline 06/30 given prolonged QTc previously -Blood cultures no growth in 24 hours -Afebrile, white blood cell count mildly elevated -Pulmonary consult -MRSA + sputum, on doxy/rocephin -Likely to benefit with home NIV, home O2 which pulm is working on arranging Urinary retention -Shaw catheter placed with 1000ml urine returned -Voiding trial in the next 1 to 2 days HTN -continue home medications when appropriate Alcohol abuse Smoking abuse -Last alcoholic drink was at 2 pm 06/27 -PRN librium -Cessation education provided -Tox screen pending Left foot wound -consult Dr. Dubon -Current patient of Dr. Dubon's -Podiatry recommends Medihoney DVT ppx Lovenox Full code LOS 2-3 days Discharge Plan: Home Plan to discharge in: 48 Hours
--- NOTE | 2024-07-05 14:24 | PN ---
Date of Progress Note: 07/04/2024 Chief Complaint: Hyponatremia, congestive heart failure, cardiorenal syndrome. Subjective: The patient was found to have severe respiratory acidosis. The patient is on oxygen and BiPAP as well as inhalers. Review of Systems: Denies fever, chills. Denies cough, hemoptysis, wheezing. Physical Examination: Lungs: Crackles bilaterally at bases. Heart: S1, S2. Abdomen: Soft, benign. Extremities: No edema. Impression And Plan: 1. High bicarbonate. ABG was done for respiratory acidosis. Lasix dose was reduced. Continue to mo nitor ABG. 2. Severe respiratory acidosis. Continue BiPAP and inhalers as tolerated. 3. Mild hyponatremia, stable. 4. Congestive heart failure. Continue low sodium diet. Monitor potassium level. Continue potassium supplementation. Monitor magnesium level. 5. Hypertension. Blood pressure controlled. Continue current medication. HEATH/MODL Voice ID: [id number] Report ID: [id number]
--- NOTE | 2024-07-05 15:34 | PN ---
Date of Progress Note: 07/05/2024 Subjective: The patient was admitted with CHF exacerbation, hyponatremia secondary to beer potomania and dilutional. The patient was diuresed aggressively. Patient had undergone cardiac cath. Physical Examination: Vital Signs: Blood pressure 117/66, pulse of 82, afebrile. Chest: Crackles bilateral. Heart: S1-S2, regular. Abdomen: Soft, nontender. Extremities: Plus edema. Neurologic: Alert. No focality. Laboratory Data: Hemoglobin 12.1. Sodium 134, potassium 3.9, bicarb 37, BUN 9, creatinine 0.9, calc ium 8.7, magnesium 2.4, phosphorus of 3. Current Medications: The patient is on include aspirin, doxycycline, Eliquis, lisinopril 5, spironol actone 50, Cosyntropin, bisacodyl, and KCl. Assessment And Plan: 1. Hyponatremia, dilutional/beer potomania, resolved. We will continue to monitor. Currently, the p atient off Lasix. 2. Alkalosis secondary to contraction, status post Diamox. Currently, bicarb 37 with CO2 of 89, whic h is appropriate. We will continue to monitor. 3. Hypertension, controlled optimal. 4. COPD with exacerbation as above. 5. Respiratory failure secondary to CHF exacerbation/COPD, recovered. 6. Non-ST elevation RI. Follow up with Cardiology. ISMAEL Voice ID: [id number] Report ID: [id number]
[2024-07-06 05:04] LABS: MCHC 34.3 g/dL (32.0-36.0); MCV 90.5 fL (80-100); Platelets 378 thou/uL (152-406); RBC Red Blood Cell Count 3.87 M/uL (4.33-5.43); Red Cell Distribution Width 16.2 % (12.1-15.2)
[2024-07-06 05:10] LABS: Anion Gap 3.9 mEq/L (5.0-15.0); Magnesium 2.2 mg/dL (1.6-2.4); Potassium 3.9 mEq/L (3.5-5.1)
[2024-07-06 09:16] VITALS: O2SAT 95
--- NOTE | 2024-07-06 15:20 | PN ---
Date of Progress Note: 07/06/2024 Subjective: The patient was admitted to the hospital with acute kidney injury secondary to cardioren al. The patient was diuresed. The patient had [id number] OR, treated, recovered. Objective: Vital Signs: When I saw the patient, blood pressure 112/61, pulse of 86. Chest: Clear to auscultation. Heart: S1, S2. Regular. Abdomen: Soft, nontender. Extremities: Plus edema. Neurologic: Alert. No focality. Laboratory Data: Hemoglobin 12. Sodium 133, potassium 3.9, bicarb 34, BUN 9, creatinine 0.7, calciu m 8.8. Assessment And Plan: 1. Hyponatremia secondary to dilutional, beer potomania, recovered, plateaued. Patient currently off the Lasix, doing well. We will continue to monitor. I am going to resume low dose of Lasix. 2. Hypertension, controlled, optimal. Continue current treatment. 3. Alkalosis secondary to contraction, status post Diamox. Bicarb down to 34. The patient had chron ic hypercapnic respiratory failure. I am going to resume low dose of Lasix and we will follow up. 4. Respiratory failure secondary to chronic obstructive pulmonary disease/congestive heart failure ex acerbation, recovered. 5. Wyx-IN-nxqijqaeg myocardial infarction, status post cardiac cath. Follow up with Cardiology. ISMAEL Voice ID: [id number] Report ID: [id number]
--- NOTE | 2024-07-06 17:25 | P.DS ---
Admission Date: 06/27/24 Discharge Date: 07/06/24 Disposition: ROUTINE DISCHARGE Discharge Condition: GOOD Reason for Admission: Acute hypoxic respiratory failure secondary to COPD exacerbation Brief History of Present Illness: Diagnosis Acute hypoxic failure 2/2 COPD/CHF exacerbation New onset afib with rvr Hyponatremia 2/2 Fluid volume overload Elevated troponin Suspected pneumonia Urinary retention HTN Alcohol abuse Smoking abuse Left foot wound HPI 06/27/24 Armando Grajeda is a 53 year old male with pmhx hypertension, COPD, CHF, alcohol and smoking abuse who presents to the ED with chief complaint of difficulty breathing that has worsened over the last week. at the bedside reports he takes 30 minutes to get out of the car and walking to the bathroom takes 40 minutes. He is not on home oxygen. On examination, he is lethargic, answering questions, tolerating 3 LNC, diaphoretic. He took his last drink at 2 PM today prior to arrival and smoke 2 1/2 packs of cigarretes when he drinks Laboratory evaluation significant for sodium 117, troponin 112.9, BNP 3410, WBC 11.1, ABG PH 7.31, PCO2 57.7, PO2 67.2, HCO3 28.5 Of note: He was discharged from [facility] where he finished antibiotics for his left foot wound. Armando will be admitted to hospitalist service for further treatment of acute hypoxic respiratory failure 2/2 CHF/COPD exacerbation Hospital Course: The following diagnoses were treated: Acute hypoxic failure 2/2 COPD/CHF exacerbation New onset afib with rvr Hyponatremia 2/2 Fluid volume overload Elevated troponin -Troponin trended flat/down -Now in NSR on PO amio and metoprolol, eliquis, spironolactone, lisinopril -echocardiogram shows EF ~40% -Nephrology following- hyponatremia improved -LHC shows normal coronaries -MRI brain negative for CVA -PT consulted- DC home with O2 set up Suspected pneumonia -Chest x-ray with some mild worsening despite diuresis -Unable to rule out pneumonia -Started on Rocephin/doxycycline 06/30 given prolonged QTc previously -Blood cultures no growth in 24 hours -Pulmonary consult- ordered Home NIV -MRSA + sputum, tolerated doxy/rocephin Urinary retention -Shaw catheter placed with 1000ml urine returned -Voiding trial passed prior to discharge HTN -Remains normotensive without home medications Alcohol abuse Smoking abuse -Last alcoholic drink was at 2 pm 06/27 -PRN librium -Cessation education provided -Tox screen negative Left foot wound -consult Dr. Dubon- recommends Medihophylicia -Current patient of Dr. Dubon's On 07/06/2024, Armando was seen on morning rounds. Hospitalist, Dr. Lee, and Dr. Lawler has deemed him medically stable for discharge. Armando was discharged with instructions to schedule follow-up appointments with Dr. Lee, Dr. Lawler, Dr. Dubon, and PCP. Armando was provided prescriptions for Lasix, amiodarone, Protonix, Dulera, Eliquis, Lasix, Medihoney, lisinopril. Physical exam GEN: AAO x3, NAD HEENT: Normal conjunctiva, sclera anicteric CV: RRR, S1 S2 present, anasarca present Pulm: Symmetrical chest wall movement, mild dyspnea, on 4 L NC ABD: Soft on palpation, ND/NT MSK: No joint tenderness Integumentary: No rashes Neuro: Normal speech, normal affect Vital Signs/Physical Exam: Temp Pulse Resp BP Pulse Ox 98.1 F 82 25 H 110/66 98 07/06/24 12:00 07/06/24 12:00 07/06/24 12:00 07/06/24 12:00 07/06/24 12:00 Laboratory Data at Discharge: WBC 10.50 thou/uL (4.3-10.9) 07/06/24 04:30 Hgb 12.0 g/dL (13.6-17.9) L 07/06/24 04:30 Hct 35.0 % (39.6-49.0) L 07/06/24 04:30 Plt Count 378 thou/uL (152-406) 07/06/24 04:30 PT 14.0 SECONDS (9.4-12.5) H 06/27/24 14:58 INR 1.34 06/27/24 14:58 Sodium 133 mEq/L (136-145) L 07/06/24 04:30 Potassium 3.9 mEq/L (3.5-5.1) 07/06/24 04:30 BUN 9 mg/dL (7-18) 07/06/24 04:30 Creatinine 0.71 mg/dL (0.70-1.30) 07/06/24 04:30 Glucose 103 mg/dL (74-106) 07/06/24 04:30 Uric Acid 6.6 mg/dL (3.5-7.2) 06/29/24 08:03 Phosphorus 3.0 mg/dL (2.5-4.9) 07/04/24 06:40 Magnesium 2.2 mg/dL (1.6-2.4) 07/06/24 04:30 Total Bilirubin 0.3 mg/dL (0.2-1.0) 06/27/24 16:11 AST 38 U/L (15-37) H 06/27/24 16:11 ALT 31 U/L (16-61) 06/27/24 16:11 Alkaline Phosphatase 68 U/L (45-117) 06/27/24 16:11 Triglycerides 89 mg/dL (<150) 06/28/24 06:15 Cholesterol 115 mg/dL (<200) 06/28/24 06:15 HDL Cholesterol 39 mg/dL (40-60) L 06/28/24 06:15 Cholesterol/HDL Ratio 2.95 06/28/24 06:15 Home Medications: Cholecalciferol (Vitamin D3) [Vitamin D 2,000 Unit Tab] 5,000 unit PO DAILY 12/18/14 Simvastatin [Zocor*] 10 mg PO BEDTIME 12/18/14 Cetirizine HCl [All Day Allergy Relief] 10 mg PO DAILY 06/27/24 Fluticasone Propion/Salmeterol [Wixela 100-50 Inhub] 1 puff PO BID 06/27/24 Folic Acid 2 mg PO DAILY 06/27/24 Hydralazine [Apresoline*] 25 mg PO BID 06/27/24 Metoprolol Tartrate [Lopressor*] 50 mg PO BID 06/27/24 Montelukast Sodium [Singulair] 10 mg PO DAILY 06/27/24 Amiodarone HCl [Cordarone*] 100 mg PO DAILY 30 Days #30 tab 07/06/24 Apixaban [Eliquis] 5 mg PO BID 30 Days #60 tab 07/06/24 Arformoterol Tartrate [Brovana] 15 mcg NEB BIDRESP 30 Days #60 vial.neb 07/06/24 Doxycycline Hyclate 100 mg PO BID 10 Days #20 tab 07/06/24 Furosemide [Lasix*] 20 mg PO DAILY 30 Days #30 tab 07/06/24 Medihoney [Medihoney Woundcare Gel*] 1 appl TOP DAILY 30 Days #1 tube 07/06/24 Mometasone/Formoterol [Dulera 200 Mcg/5 Mcg Inhaler] 2 puff IH BID 30 Days #1 inhaler 07/06/24 lisinopriL [Prinivil*] 5 mg PO DAILY 30 Days #30 tab 07/06/24 New Medications: Arformoterol Tartrate [Brovana] 15 mcg NEB BIDRESP 30 Days #60 vial.neb Amiodarone HCl [Cordarone*] 100 mg PO DAILY 30 Days #30 tab Doxycycline Hyclate 100 mg PO BID 10 Days #20 tab Mometasone/Formoterol [Dulera 200 Mcg/5 Mcg Inhaler] 2 puff IH BID 30 Days #1 inhaler Apixaban [Eliquis] 5 mg PO BID 30 Days #60 tab Furosemide [Lasix*] 20 mg PO DAILY 30 Days #30 tab Medihoney [Medihoney Woundcare Gel*] 1 appl TOP DAILY 30 Days #1 tube lisinopriL [Prinivil*] 5 mg PO DAILY 30 Days #30 tab Physician Discharge Instructions: 1. Please call and schedule a follow-up appointment with your PCP in 3-5 days - Please follow-up with your PCP for medication refills/adjustments 2. Please call and schedule a follow-up appointment with Dr. Lee in 1-2 weeks 3. Please call and schedule follow-up appointment with Dr. Lawler in 1 to 2 weeks 4. Please call and schedule follow-up appointment with Dr. Dubon in 1 week 5. Continue regular diet 6. activity restrictions fall precaution 7. Return to the ED if symptoms worsen New medications Eliquis 5 mg twice daily Brovana nebulizer treatments as needed Amiodarone 100 mg daily Diamox 250 mg twice daily Medihoney applied to foot wound Lisinopril 5 mg p.o. daily Lasix 20 mg p.o. daily Dulera inhaler 2 puffs twice daily Diet: ADA Activity: Fall precautions Followup: Missy Lawler MD [ACTIVE - CAN ADMIT] - Gustavo Lee MD [ACTIVE - CAN ADMIT] - OOT,ShalaOT [Primary Care Provider] - Anirudh Dubon JR, DPM [ASSOCIATE-ACTIVE - CAN ADMIT] -
[2024-07-06 19:30] VITALS: BP 101/54; TEMP 97.7
[2024-07-07] MEDS ORDERED: FUROSEMIDE 20 MG TABLET PO SCH (09:00)
== END 2024-07-06 17:50 | disposition home or self-care (01) | DRG 280 ==
LOC: ER 14:16 → ERHOLD 16:55 → 3RD-ICU 06-28 16:27 → 2ND 07-02 02:27
PROVIDERS: ADMIT Internal Medicine; ATTEND Internal Medicine
PROC: 4A033R1 Measurement of Arterial Saturation, Peripheral, Percutaneous Approach (ICD-10-PCS; principal; 2024-06-27)
PROC: 5A09557 Assistance with Respiratory Ventilation, Greater than 96 Consecutive Hours, Continuous Positive Airway Pressure (ICD-10-PCS; 2024-06-27)
PROC: 0T9B70Z Drainage of Bladder with Drainage Device, Via Natural or Artificial Opening (ICD-10-PCS; 2024-06-28)
PROC: 4A023N7 Measurement of Cardiac Sampling and Pressure, Left Heart, Percutaneous Approach (ICD-10-PCS; 2024-06-30)
PROC: B2111ZZ Fluoroscopy of Multiple Coronary Arteries using Low Osmolar Contrast (ICD-10-PCS; 2024-06-30)
DX: I11.0 Hypertensive heart disease with heart failure (principal); I50.43 Acute on chronic combined systolic (congestive) and diastolic (congestive) heart failure; I21.A1 Myocardial infarction type 2; J96.01 Acute respiratory failure with hypoxia; J18.9 Pneumonia, unspecified organism; J44.1 Chronic obstructive pulmonary disease with (acute) exacerbation; J44.0 Chronic obstructive pulmonary disease with (acute) lower respiratory infection; E87.1 Hypo-osmolality and hyponatremia; E27.40 Unspecified adrenocortical insufficiency; N39.0 Urinary tract infection, site not specified; E87.29 Other acidosis; L97.422 Non-pressure chronic ulcer of left heel and midfoot with fat layer exposed; N17.9 Acute kidney failure, unspecified; J96.12 Chronic respiratory failure with hypercapnia; I50.42 Chronic combined systolic (congestive) and diastolic (congestive) heart failure; E66.9 Obesity, unspecified; I48.91 Unspecified atrial fibrillation; G62.9 Polyneuropathy, unspecified; E78.00 Pure hypercholesterolemia, unspecified; F10.10 Alcohol abuse, uncomplicated; I25.10 Atherosclerotic heart disease of native coronary artery without angina pectoris; F17.210 Nicotine dependence, cigarettes, uncomplicated; B95.62 Methicillin resistant Staphylococcus aureus infection as the cause of diseases classified elsewhere; R33.9 Retention of urine, unspecified; Z23 Encounter for immunization; Z71.6 Tobacco abuse counseling; Z98.84 Bariatric surgery status; Z11.52 Encounter for screening for COVID-19; Z68.35 Body mass index [BMI] 35.0-35.9, adult; Z28.310 Unvaccinated for COVID-19; Z79.899 Other long term (current) drug therapy
CPT/HCPCS: 36415; 36600; 70450; 70544; 70549; 70553; 71045; 76937; 80048; 80061; 80069; 80076; 80307; 81001; 82024; 82533; 82570; 82805; 83605; 83735; 83880; 83930; 83935; 84100; 84132; 84156; 84300; 84439; 84443; 84484; 84550; 85025; 85027; 85610; 87040; 87070; 87077; 87086; 87088; 87186; 87205; 87804; 87811; 90471; 90732; 93005; 93306; 93458; 93970; 94640; 94660; 94760; 96372; 97110; 97116; 97161; 97530; 99152; 99153; 99285; A9577; C1893; J0282; J0461; J0696; J0834; J1644; J1650; J1940; J2003; J2250; J2310; J2919; J3010; J3411; J3475; J3535; J7030; J7040; J7060; J7605; J7613; J7614; J7644; Q9966